=== PATIENT | female | born 1970 | race American Indian/Alaskan Native ===

== ENCOUNTER 2018-02-17 20:51 | Inpatient (IN) | payer OTHER ==
[2018-02-17 21:58] LABS: Bacteria,Urine 1+ /HPF (Negative); Bilirubin,Urine NEG (Negative); Blood,Urine LG (Negative); Color,Urine Yellow (Yellow); Mucus,Urine FEW /HPF; Urobilinogen,Urine < 2.0 mg/dL (<2.0)
[2018-02-17 22:31] LABS: Hematocrit 45.2 % (30.3-42.9); Hemoglobin 14.4 gm/dl (10.1-14.3); Mean Corpuscular HGB Conc 32 % (30-34); Mean Corpuscular Hemoglobin 29 pg (28-32); Mean Corpuscular Volume 91 fl (79-97); Platelet Count 354 K/mm3 (140-440); Red Blood Count 4.99 M/mm3 (3.65-5.03); Red Cell Distribution Width 15.9 % (13.2-15.2)
[2018-02-17 22:45] LABS: Albumin 4.1 g/dL (3.9-5); Calcium 9.3 mg/dL (8.4-10.2)
[2018-02-17 23:16] LABS: Band Neutrophils # (Manual) 0.3 K/mm3; Basophils % (Manual) 0 % (0.0-1.8); Eosinophils % (Manual) 0 % (0.0-4.3); Total Cells Counted 100
[2018-02-17 23:17] LABS: Ovalocytes Few; Platelet Estimate Consistent w Auto; Poikilocytosis Few
[2018-02-17] MEDS ORDERED: D50W (25GM) Syringe IV PRN (23:30)
[2018-02-17] MEDS ORDERED: HumuLIN R IV ONE (23:30)
[2018-02-17] MEDS ORDERED: NACL 0.9% 1000 ML 1,000 ML IV ONE ×2 (23:31)
[2018-02-17] MEDS ORDERED: PEPCID IV ONE (23:38)
[2018-02-17] MEDS ORDERED: ZOFRAN IV ONE (23:38)
[2018-02-17 23:47] LABS: HCG Qualitative,Urine Negative (Negative)
--- NOTE | 2018-02-18 00:20 | Emergency Department Report ---
ED N/V/D HPI - General Chief complaint: Abdominal Pain Stated complaint: ABD PAIN; SOB Time Seen by Provider: 02/17/18 23:28 Source: patient Mode of arrival: Ambulatory Limitations: No Limitations - History of Present Illness Initial comments: 47-year-old female with a past medical history of insulin-dependent diabetes and hypertension presents to the hospital complaining of nausea, vomiting, by mouth intolerance, and generalized abdominal pain since this a.m. Patient has been noncompliant with her insulin 1 week because she ran out of medication. History of DKA last approximately 3 years ago. Patient complains of generalized 10/10 abdominal pain that is constant and unable to characterize the quality. Pain is worse with palpation with alleviating factors. She denies hematochezia, hematemesis, diarrhea, fever, or dysuria. Shortness of breath also reported. - Related Data Home Medications Medication Instructions Recorded Confirmed Last Taken amLODIPine [Norvasc] 5 mg PO DAILY 10/24/14 10/24/14 Unknown l-Norgest/E.estradiol-E.estrad 1 each PO DAILY 10/24/14 10/24/14 Unknown [Quartette Tablet] Previous Rx's Medication Instructions Recorded Last Taken Type Insulin NPH, Human [NovoLIN N] 35 unit SUB-Q BIDDIAB #1 units 10/29/14 Unknown Rx Pantoprazole [Protonix TAB] 40 mg PO BID #60 tablet 10/29/14 Unknown Rx oxyCODONE [Roxicodone TAB] 10 mg PO Q6H PRN #30 tablet 10/29/14 Unknown Rx Allergies Allergy/AdvReac Type Severity Reaction Status Date / Time Penicillins Allergy Unknown Verified 10/19/14 21:41 ED Review of Systems ROS: Stated complaint: ABD PAIN; SOB Other details as noted in HPI Comment: All other systems reviewed and negative ED Past Medical Hx - Past Medical History Hx Hypertension: Yes Hx Diabetes: Yes - Surgical History Past Surgical History?: No - Social History Smoking Status: Never Smoker Substance Use Type: None - Medications Home Medications: Home Medications Medication Instructions Recorded Confirmed Last Taken Type amLODIPine [Norvasc] 5 mg PO DAILY 10/24/14 10/24/14 Unknown History l-Norgest/E.estradiol-E.estrad 1 each PO DAILY 10/24/14 10/24/14 Unknown History [Quartette Tablet] Insulin NPH, Human [NovoLIN N] 35 unit SUB-Q BIDDIAB #1 units 10/29/14 Unknown Rx Pantoprazole [Protonix TAB] 40 mg PO BID #60 tablet 10/29/14 Unknown Rx oxyCODONE [Roxicodone TAB] 10 mg PO Q6H PRN #30 tablet 10/29/14 Unknown Rx ED Physical Exam - General Limitations: No Limitations - Other Other exam information: General: Moderate distress due to pain Head exam: Atraumatic, normocephalic Eyes exam: Normal appearance, nonicteric sclera ENT: Dry Mucous membranes Neck exam: Normal inspection, full range of motion, no meningismus nontender Respiratory exam: tachypnea, lungs clear to auscultation, ketotic breath odor Cardiovascular: Tachycardic regular rhythm Abdomen: Soft, nondistended, generalized tenderness without rebound or guarding. Bowel sounds normal Extremity: Full range of motion normal inspection no deformity Back: Normal Inspection, full range of motion, no tenderness Neurologic: Alert, oriented x3, cranial nerves intact, no motor or sensory deficit Skin: Warm, dry, intact ED Course Vital Signs 02/17/18 02/17/18 02/18/18 20:53 20:59 00:00 Temperature 98.1 F 98.1 F Pulse Rate 119 H 119 H 112 H Respiratory 18 20 26 H Rate Blood Pressure 165/100 165/100 154/88 O2 Sat by Pulse 100 100 99 Oximetry 02/18/18 00:41 Temperature 98.1 F Pulse Rate Respiratory Rate Blood Pressure O2 Sat by Pulse Oximetry ED Medical Decision Making - Lab Data Result diagrams: 02/17/18 22:05 02/17/18 22:05 Lab Results 02/17/18 02/17/18 02/17/18 Range/Units 21:10 21:24 22:05 WBC 10.7 (4.5-11.0) K/mm3 RBC 4.99 (3.65-5.03) M/mm3 Hgb 14.4 H (10.1-14.3) gm/dl Hct 45.2 H (30.3-42.9) % MCV 91 (79-97) fl MCH 29 (28-32) pg MCHC 32 (30-34) % RDW 15.9 H (13.2-15.2) % Plt Count 354 (140-440) K/mm3 Add Manual Diff Complete Total Counted 100 Seg Neutrophils % Internet Designer Seg Neuts % (Manual) 82.0 H (40.0-70.0) % Band Neutrophils % 3.0 % Lymphocytes % (Manual) 12.0 L (13.4-35.0) % Reactive Lymphs % (Man) 0 % Monocytes % (Manual) 3.0 (0.0-7.3) % Eosinophils % (Manual) 0 (0.0-4.3) % Basophils % (Manual) 0 (0.0-1.8) % Metamyelocytes % 0 % Myelocytes % 0 % Promyelocytes % 0 % Blast Cells % 0 % Nucleated RBC % Not Reportable Seg Neutrophils # Man 8.8 H (1.8-7.7) K/mm3 Band Neutrophils # 0.3 K/mm3 Lymphocytes # (Manual) 1.3 (1.2-5.4) K/mm3 Abs React Lymphs (Man) 0.0 K/mm3 Monocytes # (Manual) 0.3 (0.0-0.8) K/mm3 Eosinophils # (Manual) 0.0 (0.0-0.4) K/mm3 Basophils # (Manual) 0.0 (0.0-0.1) K/mm3 Metamyelocytes # 0.0 K/mm3 Myelocytes # 0.0 K/mm3 Promyelocytes # 0.0 K/mm3 Blast Cells # 0.0 K/mm3 WBC Morphology Not Reportable Hypersegmented Neuts Not Reportable Hyposegmented Neuts Not Reportable Hypogranular Neuts Not Reportable Smudge Cells Not Reportable Toxic Granulation Not Reportable Toxic Vacuolation Not Reportable Dohle Bodies Not Reportable Pelger-Huet Anomaly Not Reportable Maude Rods Not Reportable Platelet Estimate Consistent w auto Clumped Platelets Not Reportable Plt Clumps, EDTA Not Reportable Large Platelets Not Reportable Giant Platelets Not Reportable Platelet Satelliting Not Reportable Plt Morphology Comment Not Reportable RBC Morphology Not Reportable Dimorphic RBCs Not Reportable Polychromasia Not Reportable Hypochromasia Not Reportable Poikilocytosis Few Anisocytosis Not Reportable Microcytosis Not Reportable Macrocytosis Not Reportable Spherocytes Not Reportable Pappenheimer Bodies Not Reportable Sickle Cells Not Reportable Target Cells Not Reportable Tear Drop Cells Not Reportable Ovalocytes Few Helmet Cells Not Reportable [place] Bodies Not Reportable Bradford Rings Not Reportable [place] Cells Not Reportable Bite Cells Not Reportable Crenated Cell Not Reportable Elliptocytes Not Reportable Acanthocytes (Spur) Not Reportable Rouleaux Not Reportable Hemoglobin C Crystals Not Reportable Schistocytes Not Reportable Malaria parasites Not Reportable Herbert Bodies Not Reportable Hem Pathologist Commnt No VBG pH (7.320-7.420) Sodium (137-145) mmol/L Potassium (3.6-5.0) mmol/L Chloride (98-107) mmol/L Carbon Dioxide (22-30) mmol/L Anion Gap mmol/L BUN (7-17) mg/dL Creatinine (0.7-1.2) mg/dL Estimated GFR ml/min BUN/Creatinine Ratio % Glucose (65-100) mg/dL POC Glucose > 500 H (70-105) Calcium (8.4-10.2) mg/dL Phosphorus (2.5-4.5) mg/dL Magnesium (1.7-2.3) mg/dL Total Bilirubin (0.1-1.2) mg/dL AST (5-40) units/L ALT (7-56) units/L Alkaline Phosphatase (35-129) units/L Total Protein (6.3-8.2) g/dL Albumin (3.9-5) g/dL Albumin/Globulin Ratio % Lipase (13-60) units/L Urine Color Yellow (Yellow) Urine Turbidity Clear (Clear) Urine pH 5.0 (5.0-7.0) Ur Specific [place] 1.026 (1.003-1.030) Urine Protein 30 mg/dl (Negative) mg/dL Urine Glucose (UA) >=500 (Negative) mg/dL Urine Ketones 80 (Negative) mg/dL Urine Blood Lg (Negative) Urine Nitrite Neg (Negative) Urine Bilirubin Neg (Negative) Urine Urobilinogen < 2.0 (<2.0) mg/dL Ur Leukocyte Esterase Neg (Negative) Urine WBC (Auto) 1.0 (0.0-6.0) /HPF Urine RBC (Auto) 3.0 (0.0-6.0) /HPF U Epithel Cells (Auto) 9.0 (0-13.0) /HPF Urine Bacteria (Auto) 1+ (Negative) /HPF Urine Mucus Few /HPF Urine HCG, Qual (Negative) 02/17/18 02/17/18 02/17/18 Range/Units 22:05 22:05 23:39 WBC (4.5-11.0) K/mm3 RBC (3.65-5.03) M/mm3 Hgb (10.1-14.3) gm/dl Hct (30.3-42.9) % MCV (79-97) fl MCH (28-32) pg MCHC (30-34) % RDW (13.2-15.2) % Plt Count (140-440) K/mm3 Add Manual Diff Total Counted Seg Neutrophils % Seg Neuts % (Manual) (40.0-70.0) % Band Neutrophils % % Lymphocytes % (Manual) (13.4-35.0) % Reactive Lymphs % (Man) % Monocytes % (Manual) (0.0-7.3) % Eosinophils % (Manual) (0.0-4.3) % Basophils % (Manual) (0.0-1.8) % Metamyelocytes % % Myelocytes % % Promyelocytes % % Blast Cells % % Nucleated RBC % Seg Neutrophils # Man (1.8-7.7) K/mm3 Band Neutrophils # K/mm3 Lymphocytes # (Manual) (1.2-5.4) K/mm3 Abs React Lymphs (Man) K/mm3 Monocytes # (Manual) (0.0-0.8) K/mm3 Eosinophils # (Manual) (0.0-0.4) K/mm3 Basophils # (Manual) (0.0-0.1) K/mm3 Metamyelocytes # K/mm3 Myelocytes # K/mm3 Promyelocytes # K/mm3 Blast Cells # K/mm3 WBC Morphology Hypersegmented Neuts Hyposegmented Neuts Hypogranular Neuts Smudge Cells Toxic Granulation Toxic Vacuolation Dohle Bodies Pelger-Huet Anomaly Maude Rods Platelet Estimate Clumped Platelets Plt Clumps, EDTA Large Platelets Giant Platelets Platelet Satelliting Plt Morphology Comment RBC Morphology Dimorphic RBCs Polychromasia Hypochromasia Poikilocytosis Anisocytosis Microcytosis Macrocytosis Spherocytes Pappenheimer Bodies Sickle Cells Target Cells Tear Drop Cells Ovalocytes Helmet Cells [place] Bodies Bradford Rings Kingsley Cells Bite Cells Crenated Cell Elliptocytes Acanthocytes (Spur) Rouleaux Hemoglobin C Crystals Schistocytes Malaria parasites Herbert Bodies Hem Pathologist Commnt VBG pH 7.079 L* (7.320-7.420) Sodium 125 L (137-145) mmol/L Potassium 5.6 H (3.6-5.0) mmol/L Chloride 82.6 L (98-107) mmol/L Carbon Dioxide 6 L* (22-30) mmol/L Anion Gap 42 mmol/L BUN 18 H (7-17) mg/dL Creatinine 1.5 H (0.7-1.2) mg/dL Estimated GFR 45 ml/min BUN/Creatinine Ratio 12 % Glucose 729 H* (65-100) mg/dL POC Glucose (70-105) Calcium 9.3 (8.4-10.2) mg/dL Phosphorus (2.5-4.5) mg/dL Magnesium (1.7-2.3) mg/dL Total Bilirubin 0.30 (0.1-1.2) mg/dL AST 12 (5-40) units/L ALT 8 (7-56) units/L Alkaline Phosphatase 126 (35-129) units/L Total Protein 9.1 H (6.3-8.2) g/dL Albumin 4.1 (3.9-5) g/dL Albumin/Globulin Ratio 0.8 % Lipase 48 (13-60) units/L Urine Color (Yellow) Urine Turbidity (Clear) Urine pH (5.0-7.0) Ur Specific [place] (1.003-1.030) Urine Protein (Negative) mg/dL Urine Glucose (UA) (Negative) mg/dL Urine Ketones (Negative) mg/dL Urine Blood (Negative) Urine Nitrite (Negative) Urine Bilirubin (Negative) Urine Urobilinogen (<2.0) mg/dL Ur Leukocyte Esterase (Negative) Urine WBC (Auto) (0.0-6.0) /HPF Urine RBC (Auto) (0.0-6.0) /HPF U Epithel Cells (Auto) (0-13.0) /HPF Urine Bacteria (Auto) (Negative) /HPF Urine Mucus /HPF Urine HCG, Qual Negative (Negative) 02/17/18 Range/Units Unknown WBC (4.5-11.0) K/mm3 RBC (3.65-5.03) M/mm3 Hgb (10.1-14.3) gm/dl Hct (30.3-42.9) % MCV (79-97) fl MCH (28-32) pg MCHC (30-34) % RDW (13.2-15.2) % Plt Count (140-440) K/mm3 Add Manual Diff Total Counted Seg Neutrophils % Seg Neuts % (Manual) (40.0-70.0) % Band Neutrophils % % Lymphocytes % (Manual) (13.4-35.0) % Reactive Lymphs % (Man) % Monocytes % (Manual) (0.0-7.3) % Eosinophils % (Manual) (0.0-4.3) % Basophils % (Manual) (0.0-1.8) % Metamyelocytes % % Myelocytes % % Promyelocytes % % Blast Cells % % Nucleated RBC % Seg Neutrophils # Man (1.8-7.7) K/mm3 Band Neutrophils # K/mm3 Lymphocytes # (Manual) (1.2-5.4) K/mm3 Abs React Lymphs (Man) K/mm3 Monocytes # (Manual) (0.0-0.8) K/mm3 Eosinophils # (Manual) (0.0-0.4) K/mm3 Basophils # (Manual) (0.0-0.1) K/mm3 Metamyelocytes # K/mm3 Myelocytes # K/mm3 Promyelocytes # K/mm3 Blast Cells # K/mm3 WBC Morphology Hypersegmented Neuts Hyposegmented Neuts Hypogranular Neuts Smudge Cells Toxic Granulation Toxic Vacuolation Dohle Bodies Pelger-Huet Anomaly Maude Rods Platelet Estimate Clumped Platelets Plt Clumps, EDTA Large Platelets Giant Platelets Platelet Satelliting Plt Morphology Comment RBC Morphology Dimorphic RBCs Polychromasia Hypochromasia Poikilocytosis Anisocytosis Microcytosis Macrocytosis Spherocytes Pappenheimer Bodies Sickle Cells Target Cells Tear Drop Cells Ovalocytes Helmet Cells [place] Bodies Bradford Rings [place] Cells Bite Cells Crenated Cell Elliptocytes Acanthocytes (Spur) Rouleaux Hemoglobin C Crystals Schistocytes Malaria parasites Herbert Bodies Hem Pathologist Commnt VBG pH (7.320-7.420) Sodium (137-145) mmol/L Potassium (3.6-5.0) mmol/L Chloride (98-107) mmol/L Carbon Dioxide (22-30) mmol/L Anion Gap mmol/L BUN (7-17) mg/dL Creatinine (0.7-1.2) mg/dL Estimated GFR ml/min BUN/Creatinine Ratio % Glucose (65-100) mg/dL POC Glucose (70-105) Calcium (8.4-10.2) mg/dL Phosphorus 4.60 H (2.5-4.5) mg/dL Magnesium 1.90 (1.7-2.3) mg/dL Total Bilirubin (0.1-1.2) mg/dL AST (5-40) units/L ALT (7-56) units/L Alkaline Phosphatase (35-129) units/L Total Protein (6.3-8.2) g/dL Albumin (3.9-5) g/dL Albumin/Globulin Ratio % Lipase (13-60) units/L Urine Color (Yellow) Urine Turbidity (Clear) Urine pH (5.0-7.0) Ur Specific [place] (1.003-1.030) Urine Protein (Negative) mg/dL Urine Glucose (UA) (Negative) mg/dL Urine Ketones (Negative) mg/dL Urine Blood (Negative) Urine Nitrite (Negative) Urine Bilirubin (Negative) Urine Urobilinogen (<2.0) mg/dL Ur Leukocyte Esterase (Negative) Urine WBC (Auto) (0.0-6.0) /HPF Urine RBC (Auto) (0.0-6.0) /HPF U Epithel Cells (Auto) (0-13.0) /HPF Urine Bacteria (Auto) (Negative) /HPF Urine Mucus /HPF Urine HCG, Qual (Negative) - EKG Data -: EKG Interpreted by Ca EKG shows normal: sinus rhythm, axis (qrs 43), QRS complexes (qrsd 72), ST-T waves (no stemi/t inv) Rate: tachycardia - EKG Data When compared to previous EKG there are: previous EKG unavailable - Medical Decision Making DKA Likely secondary to insulin noncompliance likely cause of abd pain, n,v, and sob (+ metabolic acidosis) Normal saline, insulin drip with bolus, Zofran, and DKA protocol initiated LFTs and lipase unremarkable UA negative for infection Associated hyperkalemia should improve with insulin drip. No peak T waves visualized on EKG Renal insufficiency Likely due to dehydration associated with DKA IVF/NS initiated HTN chronic Hospitalists informed of admission pt will require ICU - Differential Diagnosis DKA, pancreatitis, hepatitis, gastroenteritis, , UTI, gastroparesi Critical Care Time: No Critical care attestation.: If time is entered above; I have spent that time in minutes in the direct care of this critically ill patient, excluding procedure time. ED Disposition Clinical Impression: Diabetic ketoacidosis, Noncompliance with medication regimen, Hyperkalemia, Acute renal insufficiency Disposition: OP ADMIT IP TO THIS HOSP Is pt being admited?: Yes Condition: Stable Referrals: PRIMARY CARE, [Primary Care Provider] - 3-5 Days Time of Disposition: 00:20 (Dr Steiner/hosp)
[2018-02-18] MEDS: HumuLIN R 100 UNITS in NACL 0.9% 99 ML IV SCH ×2 (00:26→11:31)
[2018-02-18] MEDS ORDERED: REGLAN IV PRN (01:53)
[2018-02-18] MEDS ORDERED: ZOFRAN IV PRN (01:53)
[2018-02-18] MEDS ORDERED: SODIUM CHLORIDE FLUSH SYRINGE 10 ML IV PRN (01:53)
--- NOTE | 2018-02-18 01:53 | History and Physical Report ---
History of Present Illness Date of examination: 02/18/18 History of present illness: 47-year-old man history of hypertension, diabetes becomes to emergency room for evaluation of generalized weakness, nausea and vomiting and generalized abdominal cramping. Towards the end of November she has been using her insulin sparingly so that it could last longer, over the last 1 week she had no insulin. Review of systems Constitutional: no weight loss, chills Ears, eyes, nose, mouth and throat: no nasal congestion, no nasal discharge, no sinus pressure, no vision change, no red eye. Neck: No neck pain or rigidity. Cardiovascular: no chest pain, palpitations Respiratory: No cough, shortness of breath Gastrointestinal: no abdominal pain, hematochezia Genitourinary : no dysuria, frequency , no hematuria Musculoskeletal: no joint swelling or muscle ache Integumentary: no rash, no pruritis Neurological: no parathesias, no numbness, no focal weakness Endocrine: no cold or heat intolerance, no polyuria or polydipsia Hematologic/Lymphatic: no easy bruising, no easy bleeding, no gland swelling Allergic/Immunologic: no urticaria, no angioedema. PAST MEDICAL HISTORY: hypertension, diabetes PAST SURGICAL HISTORY: None SOCIAL HISTORY: Denies alcohol, tobacco, drugs FAMILY HISTORY: Diabetes Medications and Allergies Allergies Allergy/AdvReac Type Severity Reaction Status Date / Time Penicillins Allergy Unknown Verified 10/19/14 21:41 Home Medications Medication Instructions Recorded Confirmed Last Taken Type amLODIPine [Norvasc] 5 mg PO DAILY 10/24/14 02/18/18 Unknown History Insulin NPH, Human [NovoLIN N] 35 unit SUB-Q BIDDIAB #1 units 10/29/14 02/18/18 Unknown Rx Insulin Regular, Human [Humulin R] 35 units SUB-Q DAILY 02/18/18 02/18/18 Unknown History Active Meds: Active Medications Dextrose (D50w (25gm) Syringe) 0 ml IV PRN PRN PRN Reason: Hypoglycemia Insulin Human Regular 100 (units/ Sodium Chloride) 100 mls @ 1 mls/hr IV TITR TREVOR; Protocol Last Titration: 02/18/18 01:38 Dose: 8 units/hr, 8 mls/hr Exam - Physical Exam Narrative exam: Gen. appearance: Patient lying in bed, no apparent distress HEENT: Normocephalic, atraumatic, pupils equally round and reactive to light, extraocular movement intact, and no sclericterus,. No JVD or thyromegaly or nodule,neck supple, no carotid bruit ,mucous membranes dry, no exudate or erythema Heart: S1, S2, regular rate and rhythm Lungs: Clear to auscultation bilaterally, breathing comfortable Abdomen: Positive bowel sounds, nontender, nondistended, no organomegaly Extremity: No edema, cyanosis, clubbing Skin: No rash, nodules, warm, dry Neuro: Oriented 3, cranial nerves II-12 intact, speech is fluent, motor and sensory intact - Constitutional Vitals: Temp Pulse Resp BP Pulse Ox 98.1 F 112 H 26 H 154/88 99 02/18/18 00:41 02/18/18 00:00 02/18/18 00:00 02/18/18 00:00 02/18/18 00:00 Results - Labs CBC & Chem 7: 02/17/18 22:05 02/18/18 02:17 Labs: Abnormal lab results 02/17/18 02/17/18 02/17/18 Range/Units 21:10 22:05 22:05 Hgb 14.4 H (10.1-14.3) gm/dl Hct 45.2 H (30.3-42.9) % RDW 15.9 H (13.2-15.2) % Seg Neuts % (Manual) 82.0 H (40.0-70.0) % Lymphocytes % (Manual) 12.0 L (13.4-35.0) % Seg Neutrophils # Man 8.8 H (1.8-7.7) K/mm3 VBG pH (7.320-7.420) Sodium 125 L (137-145) mmol/L Potassium 5.6 H (3.6-5.0) mmol/L Chloride 82.6 L (98-107) mmol/L Carbon Dioxide 6 L* (22-30) mmol/L BUN 18 H (7-17) mg/dL Creatinine 1.5 H (0.7-1.2) mg/dL Glucose 729 H* (65-100) mg/dL POC Glucose > 500 H (70-105) Phosphorus (2.5-4.5) mg/dL Total Protein 9.1 H (6.3-8.2) g/dL 02/17/18 02/17/18 Range/Units 22:05 Unknown Hgb (10.1-14.3) gm/dl Hct (30.3-42.9) % RDW (13.2-15.2) % Seg Neuts % (Manual) (40.0-70.0) % Lymphocytes % (Manual) (13.4-35.0) % Seg Neutrophils # Man (1.8-7.7) K/mm3 VBG pH 7.079 L* (7.320-7.420) Sodium (137-145) mmol/L Potassium (3.6-5.0) mmol/L Chloride (98-107) mmol/L Carbon Dioxide (22-30) mmol/L BUN (7-17) mg/dL Creatinine (0.7-1.2) mg/dL Glucose (65-100) mg/dL POC Glucose (70-105) Phosphorus 4.60 H (2.5-4.5) mg/dL Total Protein (6.3-8.2) g/dL Assessment and Plan Assessment DKA Metabolic acidosis Dehydration Hypertension Plan Admit to medicine DKA protocol with insulin drip, IV fluid Monitor serial chemistry, fingersticks Consult critical care DVT prophylaxis
[2018-02-18] MEDS ORDERED: NACL 0.9% 1000 ML 1,000 ML IV SCH (02:00)
[2018-02-18] MEDS ORDERED: D5/0.45NS 1,000 ML IV SCH (02:00)
[2018-02-18 02:42] LABS: Calcium 8.8 mg/dL (8.4-10.2)
[2018-02-18] MEDS ORDERED: NACL 0.9% 1000 ML 1,000 ML ONE (02:55)
[2018-02-18 07:36] LABS: BUN/Creatinine Ratio 14; Blood Urea Nitrogen 15 mg/dL (7-17); Calcium 8.3 mg/dL (8.4-10.2); Hemolysis Index 13
[2018-02-18] MEDS: TYLENOL PO PRN ×2 (09:04→16:35)
[2018-02-18] MEDS: NORVASC PO SCH (09:04)
[2018-02-18] MEDS: SODIUM CHLORIDE FLUSH SYRINGE 10 ML IV SCH ×2 (09:05→21:40)
[2018-02-18] MEDS: LOVENOX SUB-Q SCH (09:05)
--- NOTE | 2018-02-18 10:37 | Consultation ---
History of Present Illness Consult date: 02/18/18 Requesting physician: BEV ANAND Reason for consult: other (Diabetic Ketoacidosis; Metabolic Acidosis; Hyprekalemia) History of present illness: PULMONARY/CCM CONSULT NOTE (full dictation # [id number]) Please see dictated notes for full details Medications and Allergies Allergies Allergy/AdvReac Type Severity Reaction Status Date / Time Penicillins Allergy Unknown Verified 10/19/14 21:41 Home Medications Medication Instructions Recorded Confirmed Last Taken Type amLODIPine [Norvasc] 5 mg PO DAILY 10/24/14 02/18/18 Unknown History Insulin NPH, Human [NovoLIN N] 35 unit SUB-Q BIDDIAB #1 units 10/29/14 02/18/18 Unknown Rx Insulin Regular, Human [Humulin R] 35 units SUB-Q DAILY 02/18/18 02/18/18 Unknown History Active Meds: Active Medications Acetaminophen (Tylenol) 650 mg PO Q4H PRN PRN Reason: Pain MILD(1-3)/Fever >100.5/WILDE Last Admin: 02/18/18 09:04 Dose: 650 mg Amlodipine Besylate (Norvasc) 5 mg PO DAILY TREVOR Last Admin: 02/18/18 09:04 Dose: 5 mg Dextrose (D50w (25gm) Syringe) 0 ml IV PRN PRN PRN Reason: Hypoglycemia Enoxaparin Sodium (Lovenox) 40 mg SUB-Q QDAY TREVOR Last Admin: 02/18/18 09:05 Dose: 40 mg Insulin Human Regular 100 (units/ Sodium Chloride) 100 mls @ 1 mls/hr IV TITR TREVOR; Protocol Last Titration: 02/18/18 10:08 Dose: 3 units/hr, 3 mls/hr Dextrose/Sodium Chloride (D5/0.45ns) 1,000 mls @ 150 mls/hr IV DIRECT TREVOR Last Admin: 02/18/18 10:19 Dose: 150 mls/hr Sodium Chloride (Nacl 0.9% 1000 Ml) 1,000 mls @ 150 mls/hr IV DIRECT TREVOR Last Admin: 02/18/18 02:30 Dose: 150 mls/hr Metoclopramide HCl (Reglan) 10 mg IV Q6H PRN PRN Reason: Nausea And Vomiting Ondansetron HCl (Zofran) 4 mg IV Q4H PRN PRN Reason: Nausea And Vomiting Last Admin: 02/18/18 09:04 Dose: 4 mg Sodium Chloride (Sodium Chloride Flush Syringe 10 Ml) 10 ml IV BID TREVOR Last Admin: 02/18/18 09:05 Dose: 10 ml Sodium Chloride (Sodium Chloride Flush Syringe 10 Ml) 10 ml IV PRN PRN PRN Reason: LINE FLUSH Physical Examination Vital signs: Vital Signs Temp Pulse Resp BP Pulse Ox 98.1 F 119 H 18 165/100 100 02/17/18 20:53 02/17/18 20:53 02/17/18 20:53 02/17/18 20:53 02/17/18 20:53 Results - Laboratory Findings CBC and BMP: 02/17/18 22:05 02/18/18 10:44 Abnormal lab findings: Abnormal Labs 02/17/18 02/17/18 02/17/18 21:10 22:05 22:05 Hgb 14.4 H Hct 45.2 H RDW 15.9 H Seg Neuts % (Manual) 82.0 H Lymphocytes % (Manual) 12.0 L Seg Neutrophils # Man 8.8 H VBG pH Sodium 125 L Potassium 5.6 H Chloride 82.6 L Carbon Dioxide 6 L* BUN 18 H Creatinine 1.5 H Glucose 729 H* POC Glucose > 500 H Hemoglobin A1c Calcium Phosphorus Total Protein 9.1 H 02/17/18 02/17/18 02/17/18 22:05 Unknown 23:59 Hgb Hct RDW Seg Neuts % (Manual) Lymphocytes % (Manual) Seg Neutrophils # Man VBG pH 7.079 L* Sodium Potassium Chloride Carbon Dioxide BUN Creatinine Glucose POC Glucose > 500 H Hemoglobin A1c Calcium Phosphorus 4.60 H Total Protein 02/18/18 02/18/18 02/18/18 00:34 01:30 01:40 Hgb Hct RDW Seg Neuts % (Manual) Lymphocytes % (Manual) Seg Neutrophils # Man VBG pH Sodium Potassium Chloride Carbon Dioxide BUN Creatinine Glucose POC Glucose > 500 H 443 H Hemoglobin A1c 13.6 H Calcium Phosphorus Total Protein 02/18/18 02/18/18 02/18/18 02:17 02:42 03:41 Hgb Hct RDW Seg Neuts % (Manual) Lymphocytes % (Manual) Seg Neutrophils # Man VBG pH Sodium 130 L Potassium 5.5 H Chloride 92.3 L Carbon Dioxide 6 L* BUN 18 H Creatinine 1.3 H Glucose 571 H* POC Glucose 489 H 426 H Hemoglobin A1c Calcium Phosphorus Total Protein 02/18/18 02/18/18 02/18/18 04:43 05:44 06:42 Hgb Hct RDW Seg Neuts % (Manual) Lymphocytes % (Manual) Seg Neutrophils # Man VBG pH Sodium Potassium Chloride Carbon Dioxide BUN Creatinine Glucose POC Glucose 342 H 315 H 276 H Hemoglobin A1c Calcium Phosphorus Total Protein 02/18/18 02/18/18 02/18/18 07:12 08:15 09:06 Hgb Hct RDW Seg Neuts % (Manual) Lymphocytes % (Manual) Seg Neutrophils # Man VBG pH Sodium 132 L Potassium Chloride Carbon Dioxide 12 L BUN Creatinine Glucose 269 H POC Glucose 228 H 204 H Hemoglobin A1c Calcium 8.3 L Phosphorus Total Protein 02/18/18 02/18/18 09:33 10:10 Hgb Hct RDW Seg Neuts % (Manual) Lymphocytes % (Manual) Seg Neutrophils # Man VBG pH Sodium Potassium Chloride Carbon Dioxide BUN Creatinine Glucose POC Glucose 195 H 171 H Hemoglobin A1c Calcium Phosphorus Total Protein
[2018-02-18 11:16] LABS: BUN/Creatinine Ratio 16; Blood Urea Nitrogen 16 mg/dL (7-17); Calcium 8.1 mg/dL (8.4-10.2); Hemolysis Index 5
[2018-02-18 13:18] LABS: BUN/Creatinine Ratio 16; Blood Urea Nitrogen 16 mg/dL (7-17); Calcium 8.3 mg/dL (8.4-10.2); Hemolysis Index 10
[2018-02-18] MEDS ORDERED: D50W (25GM) Syringe IV PRN (13:42)
[2018-02-18] MEDS ORDERED: LANTUS SUB-Q ONE (13:42)
[2018-02-18] MEDS ORDERED: SODIUM BICARBONATE IV ONE (14:40)
--- NOTE | 2018-02-18 14:44 | Event Note ---
Date: 02/18/18 Patient was seen and evaluated this morning, patient is admitted this morning. Management of DKA. Patient has been managed according to DKA protocol. Patient has high anion gap metabolic acidosis and patient was given bicarbonate. Patient was alert and oriented. Continue management per H&P. The high probability of a clinically significant, sudden or life threatening deterioration of the [endocrine] system(s) required my full and direct attention , intervention and personal management. The aggregate critical care time was [32 ] minutes. This time is in addition to time spent performing reported procedures but includes the following: [x] Data Review and interpretation [x] Patient assessment and monitoring of vital signs [x] Documentation [x] Medication orders and management
[2018-02-18] MEDS ORDERED: SODIUM BICARBONATE 150 MEQ in D5W 1,000 ML IV SCH (15:00)
[2018-02-18] MEDS: HumuLIN R SUB-Q SCH ×2 (16:34→21:48)
[2018-02-18 19:16] LABS: BUN/Creatinine Ratio 15; Blood Urea Nitrogen 16 mg/dL (7-17); Calcium 8.6 mg/dL (8.4-10.2); Hemolysis Index 16
[2018-02-19 00:23] LABS: BUN/Creatinine Ratio 15; Blood Urea Nitrogen 16 mg/dL (7-17); Calcium 8.5 mg/dL (8.4-10.2); Hemolysis Index 5
[2018-02-19] MEDS: TYLENOL PO PRN (01:40)
--- NOTE | 2018-02-19 04:25 | Consultation ---
PULMONARY AND CRITICAL CARE CONSULT NOTE CONSULTING PHYSICIAN: Dr. Steiner. REASON FOR CONSULTATION: Diabetic ketoacidosis, need for ICU admission for IV insulin administration. CHIEF COMPLAINT AND HISTORY OF PRESENT ILLNESS: The patient is a 47-year-old -Macanese female with past medical history significant for diabetes, insulin-dependent, and high blood pressure, came into the Emergency Room complaining of nausea, vomiting, generalized abdominal pain had been going on for about 24 hours. She stated that she had been rationing her insulin at home and then finally ran out about a week ago. She has had a similar episode about 3 years ago. She denied any hematochezia. She denied hematemesis. She denied diarrhea. She denied fevers or chills. She denied any dysuria. She did have some abdominal pain. At the time I saw her, she remained on an insulin drip, IV insulin at 3 units per hour and is feeling a little bit better. She denies any history of tobacco use or abuse whatsoever. This really is as much of the history of presentation as I have. PAST MEDICAL HISTORY: Hypertension, diabetes. She is obese. PAST SURGICAL HISTORY: Denies. MEDICATIONS: She was on at the time I stopped by to see her, according to the medication administration record included the following: Amlodipine 5 mg p.o. daily. She remains n.p.o. now, Lovenox 40 mg subcutaneous daily. The insulin drip was going at 3 units per hour, Reglan 10 mg IV q. 6 hours p.r.n. nausea and vomiting, Zofran 4 mg IV q. 4 hours p.r.n. nausea and vomiting. ALLERGIES: PENICILLINS, nature of this allergy is unknown. DIET: Obese lady, denies acute weight loss or gain in the preceding few weeks to months. FAMILY AND SOCIAL HISTORY: Lives in the community. Denies alcohol, tobacco, or illicit drug use or abuse. Family history, otherwise noncontributory. REVIEW OF SYSTEMS: No loss of consciousness. No new onset seizures. No new onset focal weakness. No gross hematochezia or melena. No gross hematuria or dysuria. No hematemesis. No hemoptysis, no palpitations. She denies polydipsia or polyuria. Denies heat or cold intolerance. Denied any new rash on her body. Denied any new lumps or bumps. She denies any fasciculations or spasticity. No seizures. Complete 13-system review of systems obtained. Pertinent positives and/or negatives are as in body of history above, otherwise they are noncontributory. PHYSICAL EXAMINATION: VITAL SIGNS: At presentation, she was afebrile, temperature 98.1 degrees Fahrenheit, pulse 119, respiratory rate 18, blood pressure 165/100, oxygen sats 100%, inspired oxygen concentration at that time was not recorded. At the time of my evaluation, she was on supplemental oxygen 1 liter nasal cannula. GENERAL: Well-built, middle-aged -Macanese female, normocephalic, atraumatic. A little bit lethargic, but otherwise in mild respiratory distress. HEAD, EYES, EARS, NOSE AND THROAT: She is anicteric. No conjunctival erythema. Oropharynx is dry. Oropharynx is a Mallampati #3. No gross jugular venous distention, no thyromegaly. Grossly no palpable lymph nodes in the supraclavicular or submandibular lymph node chains. LUNGS: Auscultation of both lung suarez unremarkable. Lungs are clear bilaterally. HEART: Heart sounds 1 and 2 are heard, regular rate and rhythm at time of my evaluation. No rubs, no murmurs. ABDOMEN: Soft, full, bowel sounds are positive, mildly tender diffusely. No palpable hepatosplenomegaly. EXTREMITIES: Without overt digital clubbing, no cyanosis, no pedal edema. Dorsalis pedis pulses are palpable bilaterally and 2+. NEUROLOGIC: Pupils are equal and round, about 4 mm, reactive to light. Extraocular muscle movements are intact. She moves all 4 extremities spontaneously. SKIN: Normal turgor. No cellulitis, no rash. LABORATORY DATA: From my review are as follows: White cell count 10,700, hemoglobin 14.4, hematocrit 45.2, platelet count 354. Venous blood gas at presentation showed a pH of 7.08. Serum sodium was 125, potassium 5.6, chloride 83, bicarbonate was 6, BUN was 18, creatinine 1.5, glucose 729. Liver function tests essentially within normal limits. Urinalysis, large blood, negative for nitrites and leukocyte esterase and she was spilling glucose. No microbiology studies. No radiographic studies. ASSESSMENT: 1. Uncontrolled diabetes with diabetic ketoacidosis. 2. Metabolic acidosis. 3. Acute hypoxemic respiratory failure. 4. Hyponatremia. 5. Hyperkalemia. 6. Acute kidney injury. 7. Obesity. 8. Uncontrolled hypertension. 9. Medication noncompliance. PLAN: Continue IV insulin. The anion gap is about to close. Once that has happened, we will transition to long-acting insulin therapy and begin oral nutrition. I will add GI prophylaxis at this point. She is on DVT prophylaxis. Oxygen will be weaned to keep sats greater than or equal to 90%. Aspiration precautions will be maintained. We will continue antiemetics. I have counseled her about better glycemic control. Her hemoglobin A1c is 13.6 and I have explained to her that it is absolutely unacceptable if she is going to avoid significant complications. We will continue volume resuscitation. Flu and pneumonia vaccination will be addressed per protocol. Electrolytes will be monitored and corrected as necessary. Inputs and outputs will be monitored. Thank you very much for the consult. We will follow along and make further recommendations as picture progresses/becomes clearer. JOB# [id number] MARISELA/ARPITA LOMAX
[2018-02-19 06:27] LABS: BUN/Creatinine Ratio 16; Blood Urea Nitrogen 14 mg/dL (7-17); Calcium 8.4 mg/dL (8.4-10.2); Hemolysis Index 10
--- NOTE | 2018-02-19 08:15 | Progress Note ---
Subjective Date of service: 02/19/18 Principal diagnosis: Diabetic ketoacidosis Objective Vital Signs - 12hr 02/18/18 02/18/18 02/18/18 20:33 20:41 20:51 Temperature Pulse Rate 92 H 91 H Pulse Rate [ From Monitor] Respiratory 19 16 Rate Blood Pressure 130/76 130/76 130/76 O2 Sat by Pulse 99 100 99 Oximetry 02/18/18 02/18/18 02/18/18 21:00 21:11 21:20 Temperature Pulse Rate 91 H 92 H 94 H Pulse Rate [ From Monitor] Respiratory 16 29 H 18 Rate Blood Pressure 118/69 118/69 130/76 O2 Sat by Pulse 99 99 99 Oximetry 02/18/18 02/18/18 02/18/18 21:30 21:40 21:50 Temperature Pulse Rate 97 H 94 H 92 H Pulse Rate [ From Monitor] Respiratory 35 H 22 22 Rate Blood Pressure 130/76 130/76 118/69 O2 Sat by Pulse 97 98 99 Oximetry 02/18/18 02/18/18 02/18/18 22:00 22:10 22:20 Temperature Pulse Rate 101 H 94 H 94 H Pulse Rate [ From Monitor] Respiratory 18 19 19 Rate Blood Pressure 125/88 125/88 125/88 O2 Sat by Pulse 97 99 98 Oximetry 02/18/18 02/18/18 02/18/18 22:30 22:40 22:50 Temperature Pulse Rate 88 93 H 94 H Pulse Rate [ From Monitor] Respiratory 20 23 24 Rate Blood Pressure 125/88 125/88 125/88 O2 Sat by Pulse 97 98 97 Oximetry 02/18/18 02/18/18 02/18/18 22:57 23:00 23:02 Temperature Pulse Rate 96 H 95 H 95 H Pulse Rate [ From Monitor] Respiratory 22 22 22 Rate Blood Pressure 125/88 119/77 119/77 O2 Sat by Pulse 97 97 97 Oximetry 02/18/18 02/18/18 02/18/18 23:10 23:30 23:53 Temperature 98.2 F Pulse Rate 95 H 98 H Pulse Rate [ From Monitor] Respiratory 21 12 Rate Blood Pressure 119/77 119/77 O2 Sat by Pulse 95 100 Oximetry 02/19/18 02/19/18 02/19/18 00:00 00:30 01:00 Temperature Pulse Rate 97 H 95 H 99 H Pulse Rate [ 97 H From Monitor] Respiratory 19 19 18 Rate Blood Pressure 120/78 120/78 131/85 O2 Sat by Pulse 99 98 97 Oximetry 02/19/18 02/19/18 02/19/18 01:31 02:00 02:31 Temperature Pulse Rate 107 H 108 H 102 H Pulse Rate [ From Monitor] Respiratory 22 18 21 Rate Blood Pressure 131/85 127/86 127/86 O2 Sat by Pulse 99 99 97 Oximetry 02/19/18 02/19/18 02/19/18 03:00 03:23 03:31 Temperature 99.3 F Pulse Rate 95 H 92 H Pulse Rate [ From Monitor] Respiratory 19 20 Rate Blood Pressure 107/55 107/55 O2 Sat by Pulse 96 97 Oximetry 02/19/18 02/19/18 02/19/18 04:00 04:31 05:03 Temperature Pulse Rate 87 95 H 95 H Pulse Rate [ 95 H From Monitor] Respiratory 19 17 23 Rate Blood Pressure 133/79 133/79 133/79 O2 Sat by Pulse 95 100 98 Oximetry 02/19/18 02/19/18 02/19/18 05:31 06:00 06:31 Temperature Pulse Rate 90 91 H 89 Pulse Rate [ From Monitor] Respiratory 18 15 16 Rate Blood Pressure 131/90 127/89 127/89 O2 Sat by Pulse 99 100 98 Oximetry 02/19/18 02/19/18 02/19/18 07:00 07:30 08:00 Temperature Pulse Rate 87 89 Pulse Rate [ 91 H From Monitor] Respiratory 17 16 18 Rate Blood Pressure 110/61 110/61 O2 Sat by Pulse 98 97 96 Oximetry CBC and BMP: 02/17/18 22:05 02/19/18 05:26 Abnormal lab findings: Abnormal Labs 02/17/18 02/17/18 02/17/18 21:10 22:05 22:05 Hgb 14.4 H Hct 45.2 H RDW 15.9 H Seg Neuts % (Manual) 82.0 H Lymphocytes % (Manual) 12.0 L Seg Neutrophils # Man 8.8 H VBG pH Sodium 125 L Potassium 5.6 H Chloride 82.6 L Carbon Dioxide 6 L* BUN 18 H Creatinine 1.5 H Glucose 729 H* POC Glucose > 500 H Hemoglobin A1c Calcium Phosphorus Total Protein 9.1 H 02/17/18 02/17/18 02/17/18 22:05 Unknown 23:59 Hgb Hct RDW Seg Neuts % (Manual) Lymphocytes % (Manual) Seg Neutrophils # Man VBG pH 7.079 L* Sodium Potassium Chloride Carbon Dioxide BUN Creatinine Glucose POC Glucose > 500 H Hemoglobin A1c Calcium Phosphorus 4.60 H Total Protein 02/18/18 02/18/18 02/18/18 00:34 01:30 01:40 Hgb Hct RDW Seg Neuts % (Manual) Lymphocytes % (Manual) Seg Neutrophils # Man VBG pH Sodium Potassium Chloride Carbon Dioxide BUN Creatinine Glucose POC Glucose > 500 H 443 H Hemoglobin A1c 13.6 H Calcium Phosphorus Total Protein 02/18/18 02/18/18 02/18/18 02:17 02:42 03:41 Hgb Hct RDW Seg Neuts % (Manual) Lymphocytes % (Manual) Seg Neutrophils # Man VBG pH Sodium 130 L Potassium 5.5 H Chloride 92.3 L Carbon Dioxide 6 L* BUN 18 H Creatinine 1.3 H Glucose 571 H* POC Glucose 489 H 426 H Hemoglobin A1c Calcium Phosphorus Total Protein 02/18/18 02/18/18 02/18/18 04:43 05:44 06:42 Hgb Hct RDW Seg Neuts % (Manual) Lymphocytes % (Manual) Seg Neutrophils # Man VBG pH Sodium Potassium Chloride Carbon Dioxide BUN Creatinine Glucose POC Glucose 342 H 315 H 276 H Hemoglobin A1c Calcium Phosphorus Total Protein 02/18/18 02/18/18 02/18/18 07:12 08:15 09:06 Hgb Hct RDW Seg Neuts % (Manual) Lymphocytes % (Manual) Seg Neutrophils # Man VBG pH Sodium 132 L Potassium Chloride Carbon Dioxide 12 L BUN Creatinine Glucose 269 H POC Glucose 228 H 204 H Hemoglobin A1c Calcium 8.3 L Phosphorus Total Protein 02/18/18 02/18/18 02/18/18 09:33 10:10 10:44 Hgb Hct RDW Seg Neuts % (Manual) Lymphocytes % (Manual) Seg Neutrophils # Man VBG pH Sodium 134 L Potassium Chloride Carbon Dioxide 15 L BUN Creatinine Glucose 165 H POC Glucose 195 H 171 H Hemoglobin A1c Calcium 8.1 L Phosphorus Total Protein 02/18/18 02/18/18 02/18/18 11:34 11:53 12:12 Hgb Hct RDW Seg Neuts % (Manual) Lymphocytes % (Manual) Seg Neutrophils # Man VBG pH Sodium 136 L Potassium Chloride Carbon Dioxide 13 L BUN Creatinine Glucose 151 H POC Glucose 187 H 157 H Hemoglobin A1c Calcium 8.3 L Phosphorus Total Protein 02/18/18 02/18/18 02/18/18 13:42 14:36 16:35 Hgb Hct RDW Seg Neuts % (Manual) Lymphocytes % (Manual) Seg Neutrophils # Man VBG pH Sodium Potassium Chloride Carbon Dioxide BUN Creatinine Glucose POC Glucose 127 H 147 H 221 H Hemoglobin A1c Calcium Phosphorus Total Protein 02/18/18 02/18/18 02/18/18 18:13 21:46 23:33 Hgb Hct RDW Seg Neuts % (Manual) Lymphocytes % (Manual) Seg Neutrophils # Man VBG pH Sodium 133 L 132 L Potassium Chloride Carbon Dioxide 14 L 16 L BUN Creatinine Glucose 205 H 315 H POC Glucose 321 H Hemoglobin A1c Calcium Phosphorus Total Protein 02/19/18 05:26 Hgb Hct RDW Seg Neuts % (Manual) Lymphocytes % (Manual) Seg Neutrophils # Man VBG pH Sodium 132 L Potassium Chloride Carbon Dioxide 16 L BUN Creatinine Glucose 393 H POC Glucose Hemoglobin A1c Calcium Phosphorus Total Protein
[2018-02-19] MEDS: NORVASC PO SCH (09:01)
[2018-02-19] MEDS: SODIUM BICARBONATE PO SCH ×3 (09:03→21:22)
[2018-02-19] MEDS: HumuLIN R SUB-Q SCH ×4 (09:03→21:21)
[2018-02-19] MEDS: LOVENOX SUB-Q SCH (09:04)
[2018-02-19] MEDS: SODIUM CHLORIDE FLUSH SYRINGE 10 ML IV SCH ×2 (09:05→22:32)
--- NOTE | 2018-02-19 15:23 | Progress Note ---
Assessment and Plan Assessment and plan: 47-year-old -Ch[place] female with past medical history significant for type 1 diabetes mellitus on insulin admitted to ICU with a diagnosis of DKA after she ran out of her insulin for the last 2 days. DKA - Resolved - Minute according to DKA protocol - Gap closed, still CO2 is low Type 1 diabetes mellitus with hyperglycemia - Patient was on 35 units of Novolin twice a day and resumed that - Her blood sugar was in the 300's, she was initially on 10 units of novolin , i just change to 35 - Continue high-dose sliding-scale insulin Hypertension - Continue home medications - Controlled DVT prophylaxis; on Lovenox Disposition - We'll transfer to follow once her sugar is better controlled History Interval history: The patient was seen and evaluated this morning, patient is sleepy because she said she didn't sleep overnight. She was arousable and alert and oriented. Hospitalist Physical - Physical exam Narrative exam: Not in cardiopulmonary distress. The patient appeared well nourished and normally developed. Vital signs as documented. Head exam is unremarkable. No scleral icterus . Neck is without jugular venous distension, thyromegaly, or carotid bruits. Lungs are clear to auscultation. Cardiac exam reveals regular rate and Rhythm. First and second heart sounds normal. No murmurs, rubs or gallops. Abdominal exam reveals normal bowel sounds, no masses, no organomegaly and no aortic enlargement. Extremities are nonedematous and both femoral and pedal pulses are normal. 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 No focal weakness. - Constitutional Vitals: Temp Pulse Resp BP Pulse Ox 98.7 F 91 H 16 110/75 99 02/19/18 12:00 02/19/18 15:00 02/19/18 15:00 02/19/18 15:00 02/19/18 15:00 Results - Labs CBC & Chem 7: 02/17/18 22:05 02/19/18 05:26 Labs: Laboratory Last Values WBC 10.7 K/mm3 (4.5-11.0) 02/17/18 22:05 RBC 4.99 M/mm3 (3.65-5.03) 02/17/18 22:05 Hgb 14.4 gm/dl (10.1-14.3) H 02/17/18 22:05 Hct 45.2 % (30.3-42.9) H 02/17/18 22:05 MCV 91 fl (79-97) 02/17/18 22:05 MCH 29 pg (28-32) 02/17/18 22:05 MCHC 32 % (30-34) 02/17/18 22:05 RDW 15.9 % (13.2-15.2) H 02/17/18 22:05 Plt Count 354 K/mm3 (140-440) 02/17/18 22:05 Add Manual Diff Complete 02/17/18 22:05 Total Counted 100 02/17/18 22:05 Seg Neutrophils % Stained Glass Painter 02/17/18 22:05 Seg Neuts % (Manual) 82.0 % (40.0-70.0) H 02/17/18 22:05 Band Neutrophils % 3.0 % 02/17/18 22:05 Lymphocytes % (Manual) 12.0 % (13.4-35.0) L 02/17/18 22:05 Reactive Lymphs % (Man) 0 % 02/17/18 22:05 Monocytes % (Manual) 3.0 % (0.0-7.3) 02/17/18 22:05 Eosinophils % (Manual) 0 % (0.0-4.3) 02/17/18 22:05 Basophils % (Manual) 0 % (0.0-1.8) 02/17/18 22:05 Metamyelocytes % 0 % 02/17/18 22:05 Myelocytes % 0 % 02/17/18 22:05 Promyelocytes % 0 % 02/17/18 22:05 Blast Cells % 0 % 02/17/18 22:05 Nucleated RBC % Not Reportable 02/17/18 22:05 Seg Neutrophils # Man 8.8 K/mm3 (1.8-7.7) H 02/17/18 22:05 Band Neutrophils # 0.3 K/mm3 02/17/18 22:05 Lymphocytes # (Manual) 1.3 K/mm3 (1.2-5.4) 02/17/18 22:05 Abs React Lymphs (Man) 0.0 K/mm3 02/17/18 22:05 Monocytes # (Manual) 0.3 K/mm3 (0.0-0.8) 02/17/18 22:05 Eosinophils # (Manual) 0.0 K/mm3 (0.0-0.4) 02/17/18 22:05 Basophils # (Manual) 0.0 K/mm3 (0.0-0.1) 02/17/18 22:05 Metamyelocytes # 0.0 K/mm3 02/17/18 22:05 Myelocytes # 0.0 K/mm3 02/17/18 22:05 Promyelocytes # 0.0 K/mm3 02/17/18 22:05 Blast Cells # 0.0 K/mm3 02/17/18 22:05 WBC Morphology Not Reportable 02/17/18 22:05 Hypersegmented Neuts Not Reportable 02/17/18 22:05 Hyposegmented Neuts Not Reportable 02/17/18 22:05 Hypogranular Neuts Not Reportable 02/17/18 22:05 Smudge Cells Not Reportable 02/17/18 22:05 Toxic Granulation Not Reportable 02/17/18 22:05 Toxic Vacuolation Not Reportable 02/17/18 22:05 Dohle Bodies Not Reportable 02/17/18 22:05 Pelger-Huet Anomaly Not Reportable 02/17/18 22:05 Maude Rods Not Reportable 02/17/18 22:05 Platelet Estimate Consistent w auto 02/17/18 22:05 Clumped Platelets Not Reportable 02/17/18 22:05 Plt Clumps, EDTA Not Reportable 02/17/18 22:05 Large Platelets Not Reportable 02/17/18 22:05 Giant Platelets Not Reportable 02/17/18 22:05 Platelet Satelliting Not Reportable 02/17/18 22:05 Plt Morphology Comment Not Reportable 02/17/18 22:05 RBC Morphology Not Reportable 02/17/18 22:05 Dimorphic RBCs Not Reportable 02/17/18 22:05 Polychromasia Not Reportable 02/17/18 22:05 Hypochromasia Not Reportable 02/17/18 22:05 Poikilocytosis Few 02/17/18 22:05 Anisocytosis Not Reportable 02/17/18 22:05 Microcytosis Not Reportable 02/17/18 22:05 Macrocytosis Not Reportable 02/17/18 22:05 Spherocytes Not Reportable 02/17/18 22:05 Pappenheimer Bodies Not Reportable 02/17/18 22:05 Sickle Cells Not Reportable 02/17/18 22:05 Target Cells Not Reportable 02/17/18 22:05 Tear Drop Cells Not Reportable 02/17/18 22:05 Ovalocytes Few 02/17/18 22:05 Helmet Cells Not Reportable 02/17/18 22:05 [place] Bodies Not Reportable 02/17/18 22:05 Minerva Rings Not Reportable 02/17/18 22:05 [place] Cells Not Reportable 02/17/18 22:05 Bite Cells Not Reportable 02/17/18 22:05 Crenated Cell Not Reportable 02/17/18 22:05 Elliptocytes Not Reportable 02/17/18 22:05 Acanthocytes (Spur) Not Reportable 02/17/18 22:05 Rouleaux Not Reportable 02/17/18 22:05 Hemoglobin C Crystals Not Reportable 02/17/18 22:05 Schistocytes Not Reportable 02/17/18 22:05 Malaria parasites Not Reportable 02/17/18 22:05 Herbert Bodies Not Reportable 02/17/18 22:05 Hem Pathologist Commnt No 02/17/18 22:05 VBG pH 7.079 (7.320-7.420) L* 02/17/18 22:05 Sodium 132 mmol/L (137-145) L 02/19/18 05:26 Potassium 4.2 mmol/L (3.6-5.0) 02/19/18 05:26 Chloride 100.3 mmol/L (98-107) 02/19/18 05:26 Carbon Dioxide 16 mmol/L (22-30) L 02/19/18 05:26 Anion Gap 20 mmol/L 02/19/18 05:26 BUN 14 mg/dL (7-17) 02/19/18 05:26 Creatinine 0.9 mg/dL (0.7-1.2) 02/19/18 05:26 Estimated GFR > 60 ml/min 02/19/18 05:26 BUN/Creatinine Ratio 16 % 02/19/18 05:26 Glucose 393 mg/dL (65-100) H 02/19/18 05:26 POC Glucose 411 (70-105) H 02/19/18 11:20 Hemoglobin A1c 13.6 % (4-6) H 02/18/18 01:30 Calcium 8.4 mg/dL (8.4-10.2) 02/19/18 05:26 Phosphorus 4.60 mg/dL (2.5-4.5) H 02/17/18 Unknown Magnesium 1.90 mg/dL (1.7-2.3) 02/17/18 Unknown Total Bilirubin 0.30 mg/dL (0.1-1.2) 02/17/18 22:05 AST 12 units/L (5-40) 02/17/18 22:05 ALT 8 units/L (7-56) 02/17/18 22:05 Alkaline Phosphatase 126 units/L (35-129) 02/17/18 22:05 Total Protein 9.1 g/dL (6.3-8.2) H 02/17/18 22:05 Albumin 4.1 g/dL (3.9-5) 02/17/18 22:05 Albumin/Globulin Ratio 0.8 % 02/17/18 22:05 Lipase 48 units/L (13-60) 02/17/18 22:05 Urine Color Yellow (Yellow) 02/17/18 21:24 Urine Turbidity Clear (Clear) 02/17/18 21:24 Urine pH 5.0 (5.0-7.0) 02/17/18 21:24 Ur Specific [place] 1.026 (1.003-1.030) 02/17/18 21:24 Urine Protein 30 mg/dl mg/dL (Negative) 02/17/18 21:24 Urine Glucose (UA) >=500 mg/dL (Negative) 02/17/18 21:24 Urine Ketones 80 mg/dL (Negative) 02/17/18 21:24 Urine Blood Lg (Negative) 02/17/18 21:24 Urine Nitrite Neg (Negative) 02/17/18 21:24 Urine Bilirubin Neg (Negative) 02/17/18 21:24 Urine Urobilinogen < 2.0 mg/dL (<2.0) 02/17/18 21:24 Ur Leukocyte Esterase Neg (Negative) 02/17/18 21:24 Urine WBC (Auto) 1.0 /HPF (0.0-6.0) 02/17/18 21:24 Urine RBC (Auto) 3.0 /HPF (0.0-6.0) 02/17/18 21:24 U Epithel Cells (Auto) 9.0 /HPF (0-13.0) 02/17/18 21:24 Urine Bacteria (Auto) 1+ /HPF (Negative) 02/17/18 21:24 Urine Mucus Few /HPF 02/17/18 21:24 Urine HCG, Qual Negative (Negative) 02/17/18 23:39
[2018-02-19] MEDS ORDERED: NACL 0.9% 1000 ML 1,000 ML IV SCH (16:00)
[2018-02-20] MEDS: HumuLIN R SUB-Q SCH ×2 (08:37→13:03)
[2018-02-20] MEDS: SODIUM BICARBONATE PO SCH ×2 (08:40→13:07)
[2018-02-20 09:20] LABS: BUN/Creatinine Ratio 21; Blood Urea Nitrogen 15 mg/dL (7-17); Calcium 8.1 mg/dL (8.4-10.2); Hemolysis Index 1
[2018-02-20] MEDS: NORVASC PO SCH (09:22)
[2018-02-20] MEDS: LOVENOX SUB-Q SCH (09:22)
[2018-02-20] MEDS: SODIUM CHLORIDE FLUSH SYRINGE 10 ML IV SCH (09:26)
--- NOTE | 2018-02-20 10:23 | Discharge Summary ---
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 patient is non compliant with her medications. DKA - Resolved - treated according to DKA protocol - Gap closed Type 1 diabetes mellitus with hyperglycemia - Patient was on 35 units of Novolin twice a day and resumed that. - Continue high-dose sliding-scale insulin - patient's Blood sugar was controlled and discharged home. Hypertension - Continue home medications - Controlled patient discharged home in a stable conditions. Appropriate home medication script was given at the time of discharge. Disposition: DC-01 TO HOME OR SELFCARE Time spent for discharge: 34 minutes - Discharge Diagnoses (1) Diabetic ketoacidosis Status: Acute (2) Noncompliance with medication regimen Status: Acute (3) Hypertension Status: Chronic Core Measure Documentation - Palliative Care Palliative Care/ Comfort Measures: Not Applicable - Core Measures Any of the following diagnoses?: none Exam - Physical Exam Narrative exam: Not in cardiopulmonary distress. The patient appeared well nourished and normally developed. Vital signs as documented. Head exam is unremarkable. No scleral icterus . Neck is without jugular venous distension, thyromegaly, or carotid bruits. Lungs are clear to auscultation. Cardiac exam reveals regular rate and Rhythm. First and second heart sounds normal. No murmurs, rubs or gallops. Abdominal exam reveals normal bowel sounds, no masses, no organomegaly and no aortic enlargement. Extremities are nonedematous and both femoral and pedal pulses are normal. 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 No focal weakness. - Constitutional Vitals: Temp Pulse Resp BP Pulse Ox 98.4 F 78 18 128/82 98 02/20/18 07:56 02/20/18 07:56 02/20/18 07:56 02/20/18 09:22 02/20/18 08:04 Plan Activity: no restrictions Weight Bearing Status: Full Weight Bearing Diet: low salt, diabetic Additional Instructions: Please follow at [facility] in 1-2 weeks Follow up with: PRIMARY CARE, [Primary Care Provider] - 7 Days Forms: Work/School Release Form Prescriptions: amLODIPine [Norvasc] 5 mg PO DAILY #30 tablet Insulin NPH, Human [NovoLIN N] 40 unit SUB-Q BIDDIAB #2 vial Insulin Regular, Human [Humulin R] See Protocol SUB-Q DAILY #1 vial
--- NOTE | 2018-02-20 14:06 | Progress Note ---
Assessment and Plan 1. Uncontrolled diabetes with diabetic ketoacidosis. 2. Metabolic acidosis. 3. Acute hypoxemic respiratory failure. 4. Hyponatremia. 5. Hyperkalemia. 6. Acute kidney injury. 7. Obesity. 8. Uncontrolled hypertension. 9. Medication noncompliance. Subjective Date of service: 02/20/18 Principal diagnosis: Diabetic ketoacidosis Objective Vital Signs - 12hr 02/20/18 02/20/18 02/20/18 07:56 08:04 09:22 Temperature 98.4 F Pulse Rate 78 Respiratory 18 Rate Blood Pressure 128/82 128/82 O2 Sat by Pulse 98 98 Oximetry CBC and BMP: 02/17/18 22:05 02/20/18 08:06 Abnormal lab findings: Abnormal Labs 02/17/18 02/17/18 02/17/18 21:10 22:05 22:05 Hgb 14.4 H Hct 45.2 H RDW 15.9 H Seg Neuts % (Manual) 82.0 H Lymphocytes % (Manual) 12.0 L Seg Neutrophils # Man 8.8 H VBG pH Sodium 125 L Potassium 5.6 H Chloride 82.6 L Carbon Dioxide 6 L* BUN 18 H Creatinine 1.5 H Glucose 729 H* POC Glucose > 500 H Hemoglobin A1c Calcium Phosphorus Total Protein 9.1 H 02/17/18 02/17/18 02/17/18 22:05 Unknown 23:59 Hgb Hct RDW Seg Neuts % (Manual) Lymphocytes % (Manual) Seg Neutrophils # Man VBG pH 7.079 L* Sodium Potassium Chloride Carbon Dioxide BUN Creatinine Glucose POC Glucose > 500 H Hemoglobin A1c Calcium Phosphorus 4.60 H Total Protein 02/18/18 02/18/18 02/18/18 00:34 01:30 01:40 Hgb Hct RDW Seg Neuts % (Manual) Lymphocytes % (Manual) Seg Neutrophils # Man VBG pH Sodium Potassium Chloride Carbon Dioxide BUN Creatinine Glucose POC Glucose > 500 H 443 H Hemoglobin A1c 13.6 H Calcium Phosphorus Total Protein 02/18/18 02/18/18 02/18/18 02:17 02:42 03:41 Hgb Hct RDW Seg Neuts % (Manual) Lymphocytes % (Manual) Seg Neutrophils # Man VBG pH Sodium 130 L Potassium 5.5 H Chloride 92.3 L Carbon Dioxide 6 L* BUN 18 H Creatinine 1.3 H Glucose 571 H* POC Glucose 489 H 426 H Hemoglobin A1c Calcium Phosphorus Total Protein 02/18/18 02/18/18 02/18/18 04:43 05:44 06:42 Hgb Hct RDW Seg Neuts % (Manual) Lymphocytes % (Manual) Seg Neutrophils # Man VBG pH Sodium Potassium Chloride Carbon Dioxide BUN Creatinine Glucose POC Glucose 342 H 315 H 276 H Hemoglobin A1c Calcium Phosphorus Total Protein 02/18/18 02/18/18 02/18/18 07:12 08:15 09:06 Hgb Hct RDW Seg Neuts % (Manual) Lymphocytes % (Manual) Seg Neutrophils # Man VBG pH Sodium 132 L Potassium Chloride Carbon Dioxide 12 L BUN Creatinine Glucose 269 H POC Glucose 228 H 204 H Hemoglobin A1c Calcium 8.3 L Phosphorus Total Protein 02/18/18 02/18/18 02/18/18 09:33 10:10 10:44 Hgb Hct RDW Seg Neuts % (Manual) Lymphocytes % (Manual) Seg Neutrophils # Man VBG pH Sodium 134 L Potassium Chloride Carbon Dioxide 15 L BUN Creatinine Glucose 165 H POC Glucose 195 H 171 H Hemoglobin A1c Calcium 8.1 L Phosphorus Total Protein 02/18/18 02/18/18 02/18/18 11:34 11:53 12:12 Hgb Hct RDW Seg Neuts % (Manual) Lymphocytes % (Manual) Seg Neutrophils # Man VBG pH Sodium 136 L Potassium Chloride Carbon Dioxide 13 L BUN Creatinine Glucose 151 H POC Glucose 187 H 157 H Hemoglobin A1c Calcium 8.3 L Phosphorus Total Protein 02/18/18 02/18/18 02/18/18 13:42 14:36 16:35 Hgb Hct RDW Seg Neuts % (Manual) Lymphocytes % (Manual) Seg Neutrophils # Man VBG pH Sodium Potassium Chloride Carbon Dioxide BUN Creatinine Glucose POC Glucose 127 H 147 H 221 H Hemoglobin A1c Calcium Phosphorus Total Protein 02/18/18 02/18/18 02/18/18 18:13 21:46 23:33 Hgb Hct RDW Seg Neuts % (Manual) Lymphocytes % (Manual) Seg Neutrophils # Man VBG pH Sodium 133 L 132 L Potassium Chloride Carbon Dioxide 14 L 16 L BUN Creatinine Glucose 205 H 315 H POC Glucose 321 H Hemoglobin A1c Calcium Phosphorus Total Protein 02/19/18 02/19/18 02/19/18 05:26 08:14 11:20 Hgb Hct RDW Seg Neuts % (Manual) Lymphocytes % (Manual) Seg Neutrophils # Man VBG pH Sodium 132 L Potassium Chloride Carbon Dioxide 16 L BUN Creatinine Glucose 393 H POC Glucose 340 H 411 H Hemoglobin A1c Calcium Phosphorus Total Protein 02/19/18 02/19/18 02/20/18 15:40 21:12 06:39 Hgb Hct RDW Seg Neuts % (Manual) Lymphocytes % (Manual) Seg Neutrophils # Man VBG pH Sodium Potassium Chloride Carbon Dioxide BUN Creatinine Glucose POC Glucose 255 H 224 H 254 H Hemoglobin A1c Calcium Phosphorus Total Protein 02/20/18 02/20/18 08:06 11:45 Hgb Hct RDW Seg Neuts % (Manual) Lymphocytes % (Manual) Seg Neutrophils # Man VBG pH Sodium Potassium 3.3 L D Chloride Carbon Dioxide 21 L BUN Creatinine Glucose 257 H POC Glucose 261 H Hemoglobin A1c Calcium 8.1 L Phosphorus Total Protein
--- NOTE | 2018-02-20 14:21 | Query-Kidney Disease ---
Dear Ellis Date: 02/20/2018 World Designer/CDS: kath Phone#:__[phone] Exercise your independent professional judgment when responding to query. Questions asked do not imply a particular answer is desired or expected. We greatly appreciate your clarification on this issue. Clinical Documentation States: 47-year-old man history of hypertension, diabetes becomes to emergency room for evaluation of generalized weakness, nausea and vomiting and generalized abdominal cramping. Taken from H&P note (Veronica Gates) on 02/18/18. Assessment and Plan:Taken from progress note () on 02/19/18. DKA Type 1 diabetes mellitus with hyperglycemia Clinical Findings Show: 02/17/18 02/18/18 02/19/18 Creatinine 1.5 1.3 0.9 BUN 18 H 15 H 14 H BUN/Cr ratio 12% 16% 16% Please Clarify if you mean: Acute Renal Failure with or due to: [ ] Tubular Necrosis [ ] Cortical Necrosis [ ] Shock Kidney [x ] Vasomotor Nephropathy [ ] Lower Tubular Nephrosis [ ] Renal Tubular Stasis [ ] Tubular Nephrosis [ ] Medullary Necrosis [ ] Acute Renal Failure (unspecified) [ ] Other: [ ] Comment/Explanation: Chronic Kidney Disease (Please atka applicable stage) 3 Stages Description GFR [ ] CKD Stage 1 90 mL/min or more [ ] CKD Stage 2 Mild decrease in Kidney function 60 to 89 mL/min [ ] CKD Stage 3 Moderate decrease in kidney function 30-59 [ ] CKD Stage 4 Severe decrease in kidney function 15-29 [ ] CKD Stage 5 Kidney failure; requiring dialysis or transplantation <15 [ ] ESRD Patient requiring dialysis for > 3 months or kidney transplant irrespective of level of GFR; Applicable for 1 year after kidney transplant [ ] Other: [ ] Comment/Explanation: Present on Admission: [x ] Yes (Y) [ ] Clinically undeterminable (W) [ ] No (N) Please also document response in your Progress Notes and/or Discharge Summary and indicate if the condition was present on admission MTDD
[2018-02-20] MEDS ORDERED: K-DUR PO ONE (15:00)
[2018-02-20 17:06] VITALS: BP 124/76
== END 2018-02-20 17:45 | disposition home or self-care (01) | DRG 682 ==
LOC: ED 20:51 → CC1 02-18 01:53 → 3A 02-19 22:58
PROVIDERS: ADMIT Internal Medicine; ATTEND Internal Medicine
DX: N17.0 Acute kidney failure with tubular necrosis (principal); E10.10 Type 1 diabetes mellitus with ketoacidosis without coma; J96.01 Acute respiratory failure with hypoxia; E87.1 Hypo-osmolality and hyponatremia; E87.5 Hyperkalemia; E66.9 Obesity, unspecified; N28.9 Disorder of kidney and ureter, unspecified; E86.0 Dehydration; I10 Essential (primary) hypertension; Z88.0 Allergy status to penicillin; Z91.14 Patient's other noncompliance with medication regimen; Z79.4 Long term (current) use of insulin; Z83.3 Family history of diabetes mellitus; Z68.30 Body mass index [BMI] 30.0-30.9, adult
CPT/HCPCS: 36415; 80048; 80053; 81001; 81025; 82805; 82962; 83036; 83690; 83735; 84100; 85007; 85025; 93005; 93010; 94760; 96361; 96374; 96375; J1650; J1815; J2405; J7030; J7070

== ENCOUNTER 2020-10-16 23:55 | Inpatient (IN) | payer OTHER ==
[2020-10-17] MEDS ORDERED: FAMOTIDINE 20 MG/2 ML INJ IV ONE (00:08)
[2020-10-17] MEDS ORDERED: SODIUM CHLORIDE 0.9% 1000 ML 1,000 ML IV ONE (00:08)
[2020-10-17] MEDS ORDERED: ONDANSETRON 4 MG/2 ML INJ IV ONE (00:08)
--- NOTE | 2020-10-17 00:11 | Event Note ---
ED Screening Note Date of service: 10/17/20 ED Screening Note: Patient is a 50-year-old -[place] female with a history of hypertension and insulin-dependent diabetes who presents to the ED with complaint of acute onset persistent nausea and vomiting, generalized weakness, shortness of breath on exertion, persistent dry cough, lack of appetite and fatigue for the last 3 days. Patient states that she has had multiple episodes of nausea and vomiting and that prior to arrival in the ED, her blood sugar was reading "high" when measured by the EMS crew. Patient denies chest pain, abdominal pain, dizziness, syncope, palpitations, dysuria, urinary frequency and urgency, nasal and sinus congestion or sore throat and diarrhea. This initial assessment/diagnostic orders/clinical plan/treatment(s) is/are subject to change based on patients health status, clinical progression and re- assessment by fellow clinical providers in the ED. Further treatment and workup at subsequent clinical providers discretion. Patient/guardian urged not to elope from the ED as their condition may be serious if not clinically assessed and managed. Initial orders include: CBC, CMP, troponin, BNP, chest x-ray, UA and EKG
--- NOTE | 2020-10-17 00:39 | XRay Report ---
CHEST 1 VIEW 12:27 AM INDICATION / CLINICAL INFORMATION: Dyspnea. COMPARISON: None available. FINDINGS: SUPPORT DEVICES: None. HEART / MEDIASTINUM: The heart size and pulmonary vasculature are normal. LUNGS / PLEURA: No acute pulmonary or pleural abnormality. No pneumothorax. ADDITIONAL FINDINGS: There is a small bone island in the left seventh posterior rib versus a calcifie d granuloma overlying the rib. There is mild calcific tendinopathy involving the left rotator cuff. IMPRESSION: No acute pulmonary disease. Signer Name: Jerson Mota MD Signed: 10/17/2020 12:35 AM Workstation Name: [id number]
[2020-10-17] MEDS ORDERED: dexAMETHasone 4 MG/ML VIAL IV ONE (01:25)
--- NOTE | 2020-10-17 01:30 | Emergency Department Report ---
ED General Adult HPI - General Chief complaint: Dyspnea/Respdistress Stated complaint: HIGH SUGAR,SOB PUI?: Yes Time Seen by Provider: 10/17/20 00:43 Source: patient, RN notes reviewed Mode of arrival: Ambulatory Limitations: Physical Limitation - History of Present Illness Initial comments: The patient was evaluated in the emergency department for symptoms described in the history of present illness. He/she was evaluated in the context of the global COVID-19 pandemic, which necessitated consideration that the patient might be at risk for infection with the virus that causes COVID-19. Institutional protocols and algorithms that pertain to the evaluation of patients at risk for COVID-19 are in a state of rapid change based on information released by regulatory bodies including the CDC and federal and state organizations. These policies and algorithms were followed during the patient's care in the emergency department. Please note that these policies, procedures and recommendations changed on a rapid basis. During the entire history and physical examination, I had on complete personal protective equipment. The patient is a 50-year-old female. She has a history of diabetes and hypertension. She presents to the ER today with a complaint of a few days shortness of breath, legs, fatigue and weakness. No physical pain. Positive sensation of dehydration. No loss of taste or smell. No fever. Positive n ausea. No dysuria. No diarrhea. Positive body aches. Reports compliance with medications. Denies known Covid exposure. States that she is not . Denies travel, surgery, posterior leg pain and leg swelling. -: Gradual, days(s) Consistency: constant Improves with: rest Worsens with: movement - Related Data Previous Rx's Medication Instructions Recorded Last Taken Type Insulin NPH, Human [NovoLIN N] 40 unit SUB-Q BIDDIAB #2 vial 02/20/18 Unknown Rx Insulin Regular, Human [Humulin R] See Protocol SUB-Q DAILY #1 vial 02/20/18 Unknown Rx amLODIPine 5 mg PO DAILY #30 tablet 02/20/18 Unknown Rx Allergies Allergy/AdvReac Type Severity Reaction Status Date / Time Penicillins Allergy Unknown Verified 10/19/14 21:41 ED Review of Systems ROS: Stated complaint: HIGH SUGAR,SOB Other details as noted in HPI Constitutional: malaise, weakness. denies: fever Eyes: denies: eye discharge ENT: congestion Respiratory: shortness of breath. denies: cough Cardiovascular: denies: chest pain Gastrointestinal: nausea. denies: abdominal pain Genitourinary: denies: dysuria Musculoskeletal: myalgia Neurological: weakness Psychiatric: anxiety Hematological/Lymphatic: denies: easy bleeding ED Past Medical Hx - Past Medical History Previous Medical History?: Yes Hx Hypertension: Yes Hx Diabetes: Yes Hx HIV: No - Surgical History Past Surgical History?: No - Social History Smoking Status: Never Smoker Substance Use Type: None - Medications Home Medications: Home Medications Medication Instructions Recorded Confirmed Last Taken Type Insulin NPH, Human [NovoLIN N] 40 unit SUB-Q BIDDIAB #2 vial 02/20/18 Unknown Rx Insulin Regular, Human [Humulin R] See Protocol SUB-Q DAILY #1 vial 02/20/18 Unknown Rx amLODIPine 5 mg PO DAILY #30 tablet 02/20/18 Unknown Rx ED Physical Exam - General Limitations: Physical Limitation General appearance: alert, anxious, in distress, obese - Head Head exam: Present: atraumatic, normocephalic - Eye Eye exam: Present: normal appearance, EOMI. Absent: nystagmus - ENT ENT exam: Present: normal exam, normal orophraynx, mucous membranes dry, normal external ear exam - Neck Neck exam: Present: normal inspection, full ROM. Absent: tenderness, meningismus - Respiratory Respiratory exam: Present: normal lung sounds bilaterally. Absent: respiratory distress, wheezes, rales, rhonchi, stridor - Cardiovascular Cardiovascular Exam: Present: normal rhythm, tachycardia, normal heart sounds. Absent: systolic murmur, diastolic murmur, rubs, gallop - GI/Abdominal GI/Abdominal exam: Present: soft. Absent: distended, tenderness, guarding, rebound, rigid, pulsatile mass - Extremities Exam Extremities exam: Present: normal inspection, full ROM, other (2+ pulses noted in the bilateral upper and lower extremities. There is no palpable cord. nega tive Homans sign. Muscular compartments are soft. The pelvis is stable.). Absent: pedal edema, calf tenderness - Back Exam Back exam: Present: normal inspection, full ROM. Absent: tenderness, CVA tenderness (R), CVA tenderness (L), paraspinal tenderness, vertebral tenderness - Neurological Exam Neurological exam: Present: alert, other (No facial droop. Tongue midline. Extraocular movements intact bilaterally. Facial sensation intact to light touch in V1, V2, V3 distribution bilaterally. 5 and a 5 strength in 4 extremities. Sensation intact to light touch in 4 extremities.). Absent: motor sensory deficit - Psychiatric Psychiatric exam: Present: anxious - Skin Skin exam: Present: warm, dry, intact, normal color. Absent: rash ED Course Vital Signs 10/17/20 00:02 Temperature 97.3 F L Pulse Rate 118 H Respiratory 22 Rate Blood Pressure 150/85 O2 Sat by Pulse 100 Oximetry - Reevaluation(s) Reevaluation #1: 10/17/20 02:27 Differential diagnosis, including but not limited to: Diabetic ketoacidosis, pneumonia, urinary tract infection, hyperosmolar state, dehydration Assessment and plan: 50-year-old female who is markedly tachypneic and tachycardic, appears to have house coordinator small respirations, without DVT or pulmonary em bolism risk factors, suspicious for COVID-19, and probable superimposed diabetic ketoacidosis. Place patient on isolation. Start supplemental oxygen and steroids. Appreciate that patient has hyperglycemia. However, during trial of ambulation, desaturated to 91%. Send Covid labs to risk stratify for cytokine storm. Please courtesy consultation for infectious disease. Initiate fluids, insulin therapy and insulin drip. Admit to the medical service. Discussed this plan of care with the patient, who verbalized understanding, and is amenable to this plan of care. Reevaluation #2: 10/17/20 02:28 Venous pH very acidotic, patient found to have hyperglycemia, anion gap acidosis, hyperkalemia, pseudohyponatremia. Elevated lipase reviewed and appreciated. This is most likely secondary to hyperglycemia. There is no abdominal tenderness, rebound or guarding. With fluids, and insulin therapy, hyperkalemia should improve. Hospital physician, Dr. Rock, to admit to the intensive care unit. ED Medical Decision Making - Lab Data Result diagrams: 10/17/20 00:25 10/17/20 00:25 Lab Results 10/17/20 10/17/20 10/17/20 Range/Units 00:12 00:25 00:25 WBC 10.2 (4.5-11.0) K/mm3 RBC 5.49 H (3.65-5.03) M/mm3 Hgb 15.5 H (10.1-14.3) gm/dl Hct 48.8 H (30.3-42.9) % MCV 89 (79-97) fl MCH 28 (28-32) pg MCHC 32 (30-34) % RDW 17.1 H (13.2-15.2) % Plt Count 219 (140-440) K/mm3 Lymph % (Auto) 7.2 L (13.4-35.0) % [place] % (Auto) 3.8 (0.0-7.3) % Eos % (Auto) 0.2 (0.0-4.3) % Baso % (Auto) 0.7 (0.0-1.8) % Lymph # (Auto) 0.7 L (1.2-5.4) K/mm3 [place] # (Auto) 0.4 (0.0-0.8) K/mm3 Eos # (Auto) 0.0 (0.0-0.4) K/mm3 Baso # (Auto) 0.1 (0.0-0.1) K/mm3 Seg Neutrophils % 88.1 H (40.0-70.0) % Seg Neutrophils # 8.9 H (1.8-7.7) K/mm3 PT (12.2-14.9) Sec. INR (0.87-1.13) D-Dimer (0-234) ng/mlDDU Estimated GFR 39 ml/min BUN/Creatinine Ratio 21 % POC Glucose 454 H (70-105) mg/dL Troponin T < 0.010 (0.00-0.029) ng/mL NT-Pro-B Natriuret Pep 127.2 (0-450) pg/mL Albumin/Globulin Ratio 1.1 % 10/17/20 Range/Units 01:34 WBC (4.5-11.0) K/mm3 RBC (3.65-5.03) M/mm3 Hgb (10.1-14.3) gm/dl Hct (30.3-42.9) % MCV (79-97) fl MCH (28-32) pg MCHC (30-34) % RDW (13.2-15.2) % Plt Count (140-440) K/mm3 Lymph % (Auto) (13.4-35.0) % [place] % (Auto) (0.0-7.3) % Eos % (Auto) (0.0-4.3) % Baso % (Auto) (0.0-1.8) % Lymph # (Auto) (1.2-5.4) K/mm3 [place] # (Auto) (0.0-0.8) K/mm3 Eos # (Auto) (0.0-0.4) K/mm3 Baso # (Auto) (0.0-0.1) K/mm3 Seg Neutrophils % (40.0-70.0) % Seg Neutrophils # (1.8-7.7) K/mm3 PT 15.4 H (12.2-14.9) Sec. INR 1.24 H (0.87-1.13) D-Dimer 1017.46 H (0-234) ng/mlDDU Estimated GFR ml/min BUN/Creatinine Ratio % POC Glucose (70-105) mg/dL Troponin T (0.00-0.029) ng/mL NT-Pro-B Natriuret Pep (0-450) pg/mL Albumin/Globulin Ratio % Lab Results 10/17/20 10/17/20 10/17/20 Range/Units 00:12 00:25 00:25 WBC 10.2 (4.5-11.0) K/mm3 RBC 5.49 H (3.65-5.03) M/mm3 Hgb 15.5 H (10.1-14.3) gm/dl Hct 48.8 H (30.3-42.9) % MCV 89 (79-97) fl MCH 28 (28-32) pg MCHC 32 (30-34) % RDW 17.1 H (13.2-15.2) % Plt Count 219 (140-440) K/mm3 Lymph % (Auto) 7.2 L (13.4-35.0) % [place] % (Auto) 3.8 (0.0-7.3) % Eos % (Auto) 0.2 (0.0-4.3) % Baso % (Auto) 0.7 (0.0-1.8) % Lymph # (Auto) 0.7 L (1.2-5.4) K/mm3 [place] # (Auto) 0.4 (0.0-0.8) K/mm3 Eos # (Auto) 0.0 (0.0-0.4) K/mm3 Baso # (Auto) 0.1 (0.0-0.1) K/mm3 Seg Neutrophils % 88.1 H (40.0-70.0) % Seg Neutrophils # 8.9 H (1.8-7.7) K/mm3 PT (12.2-14.9) Sec. INR (0.87-1.13) D-Dimer (0-234) ng/mlDDU Estimated GFR 39 ml/min BUN/Creatinine Ratio 21 % POC Glucose 454 H (70-105) mg/dL Troponin T < 0.010 (0.00-0.029) ng/mL NT-Pro-B Natriuret Pep 127.2 (0-450) pg/mL Albumin/Globulin Ratio 1.1 % 10/17/20 Range/Units 01:34 WBC (4.5-11.0) K/mm3 RBC (3.65-5.03) M/mm3 Hgb (10.1-14.3) gm/dl Hct (30.3-42.9) % MCV (79-97) fl MCH (28-32) pg MCHC (30-34) % RDW (13.2-15.2) % Plt Count (140-440) K/mm3 Lymph % (Auto) (13.4-35.0) % [place] % (Auto) (0.0-7.3) % Eos % (Auto) (0.0-4.3) % Baso % (Auto) (0.0-1.8) % Lymph # (Auto) (1.2-5.4) K/mm3 [place] # (Auto) (0.0-0.8) K/mm3 Eos # (Auto) (0.0-0.4) K/mm3 Baso # (Auto) (0.0-0.1) K/mm3 Seg Neutrophils % (40.0-70.0) % Seg Neutrophils # (1.8-7.7) K/mm3 PT 15.4 H (12.2-14.9) Sec. INR 1.24 H (0.87-1.13) D-Dimer 1017.46 H (0-234) ng/mlDDU Estimated GFR ml/min BUN/Creatinine Ratio % POC Glucose (70-105) mg/dL Troponin T (0.00-0.029) ng/mL NT-Pro-B Natriuret Pep (0-450) pg/mL Albumin/Globulin Ratio % Vital Signs 10/17/20 00:02 Temperature 97.3 F L Pulse Rate 118 H Respiratory 22 Rate Blood Pressure 150/85 O2 Sat by Pulse 100 Oximetry - EKG Data -: EKG Interpreted by Pa EKG shows normal: sinus rhythm Rate: tachycardia - EKG Data 10/17/20 02:24 Sinus rhythm, tachycardia, 107 bpm. Normal axis, left ventricular hypertrophy, QTC prolonged, 478 ms, motion artifact, and poor R wave progression. Abnormal EKG. Not a STEMI. EKG is grossly unchanged from prior EKG from February 2018 - Radiology Data Radiology results: pending, report reviewed, image reviewed CHEST 1 VIEW 12:27 AM INDICATION / CLINICAL INFORMATION: Dyspnea. COMPARISON: None available. FINDINGS: SUPPORT DEVICES: None. HEART / MEDIASTINUM: The heart size and pulmonary vasculature are normal. LUNGS / PLEURA: No acute pulmonary or pleural abnormality. No pneumothorax. ADDITIONAL FINDINGS: There is a small bone island in the left seventh posterior rib versus a calcified granuloma overlying the rib. There is mild calcific tendinopathy involving the left rotator cuff. IMPRESSION: No acute pulmonary disease. Signer Name: Jerson Mota MD Signed: 10/16/2020 11:35 PM Workstation Name: [id number] Critical Care Time: Yes Critical care time in (mins) excluding proc time.: 35 Critical care attestation.: If time is entered above; I have spent that time in minutes in the direct care of this critically ill patient, excluding procedure time. ED Disposition Clinical Impression: Diabetic ketoacidosis, Noncompliance with medication regimen, Acute renal insufficiency, Suspected 2019 novel coronavirus infection, Hyperkalemia, Elevated lipase Disposition: OP ADMIT IP TO THIS HOSP Is pt being admited?: Yes Does the pt Need Aspirin: No Condition: Critical Instructions: Diabetic Ketoacidosis (ED) Referrals: PRIMARY CARE, [Primary Care Provider] - 3-5 Days
[2020-10-17 01:37] LABS: Basophils # (Auto) 0.1 K/mm3 (0.0-0.1); Basophils % (Auto) 0.7 % (0.0-1.8); Eosinophils % (Auto) 0.2 % (0.0-4.3); Hematocrit 48.8 % (30.3-42.9); Hemoglobin 15.5 gm/dl (10.1-14.3); Lymphocytes # (Auto) 0.7 K/mm3 (1.2-5.4); Lymphocytes % (Auto) 7.2 % (13.4-35.0); Mean Corpuscular HGB Conc 32 % (30-34); Mean Corpuscular Volume 89 fl (79-97); Monocytes # (Auto) 0.4 K/mm3 (0.0-0.8); Monocytes % (Auto) 3.8 % (0.0-7.3); Red Blood Count 5.49 M/mm3 (3.65-5.03); Red Cell Distribution Width 17.1 % (13.2-15.2)
[2020-10-17 01:38] LABS: Platelet Count 219 K/mm3 (140-440)
[2020-10-17 02:03] LABS: Alanine Aminotransferase 9 units/L (7-56); Albumin 4.6 g/dL (3.9-5); BUN/Creatinine Ratio 21; Blood Urea Nitrogen 35 mg/dL (7-17); Calcium 9.6 mg/dL (8.4-10.2); Hemolysis Index 117
[2020-10-17 02:21] LABS: INR 1.24 (0.87-1.13)
[2020-10-17] MEDS ORDERED: SODIUM CHLORIDE 0.9% 1000 ML 2,000 ML IV ONE (02:29)
[2020-10-17] MEDS ORDERED: DEXTROSE 50% IN WATER (25GM) 50 ML SYRINGE IV PRN (02:29)
[2020-10-17] MEDS ORDERED: INSULIN REGULAR, HUMAN 100 UNITS/1 ML IV ONE (02:29)
[2020-10-17 02:31] LABS: HCG,Quantitative < 2 mIU/mL (0-4)
--- NOTE | 2020-10-17 02:52 | History and Physical Report ---
History of Present Illness Date of examination: 10/17/20 Chief complaint: Shortness of breath Respiratory distress Hyperglycemia History of present illness: 50-year-old female with history of diabetes and hypertension was brought to the emergency room because of shortness of breath, legs, fatigue and weakness for last few days. Patient complaint shortness of breath, no loss of taste or smell. No fever. Positive nausea. No dysuria. No diarrhea. Positive body aches. Reports compliance with medications. Denies known Covid exposure. In the emergency room patient is found to have blood glucose of 547, potassium of 6.5 BUN 35 creatinine 1.7 and lactic acid 2.90. Patient is found to have DKA Past History Past Medical History: diabetes, hypertension Medications and Allergies Allergies Allergy/AdvReac Type Severity Reaction Status Date / Time Penicillins Allergy Unknown Verified 10/19/14 21:41 Home Medications Medication Instructions Recorded Confirmed Last Taken Type Insulin NPH, Human [NovoLIN N] 40 unit SUB-Q BIDDIAB #2 vial 02/20/18 Unknown R x Insulin Regular, Human [Humulin R] See Protocol SUB-Q DAILY #1 vial 02/20/18 Unknown Rx amLODIPine 5 mg PO DAILY #30 tablet 02/20/18 Unknown Rx Active Meds: Active Medications Amlodipine Besylate (Amlodipine 5 Mg Tab) 5 mg PO DAILY TREVOR Dextrose (Dextrose 50% In Water (25gm) 50 Ml Syringe) 0 ml IV Q30MIN PRN; Protocol PRN Reason: Hypoglycemia Famotidine (Famotidine 20 Mg Tab) 20 mg PO BID TREVOR Heparin Sodium (Porcine) (Heparin 5,000 Unit/1 Ml Vial) 5,000 unit SUB-Q Q8HR TREVOR Insulin Human Regular 100 (units/ Sodium Chloride) 100 mls @ 1 mls/hr IV TITR S CH; Protocol Potassium Chloride/Dextrose/Sod Cl (D5w/0.45% Nacl/Kcl 20 Meq) 20 meq in 1,000 mls @ 125 mls/hr IV DIRECT TREVOR Insulin Human Regular 100 (units/ Sodium Chloride) 100 mls @ 1 mls/hr IV TITR TREVOR; Protocol Ceftriaxone Sodium (Rocephin/Ns 2 Gm/100 Ml) 2 gm in 100 mls @ 200 mls/hr IV Q2 4H TREVOR; Protocol Azithromycin (Zithromax/Ns) 500 mg in 250 mls @ 250 mls/hr IV Q24H TREVOR; Protocol Sodium Chloride (Sodium Chloride 0.9% 10 Ml Flush Syringe) 10 ml IV PRN PRN PRN Reason: LINE FLUSH Review of Systems Constitutional: fatigue, weakness, malaise Cardiovascular: shortness of breath Respiratory: shortness of breath Exam - Constitutional Vitals: Temp Pulse Resp BP Pulse Ox 97.3 F L 118 H 22 150/85 100 10/17/20 00:02 10/17/20 00:02 10/17/20 00:02 10/17/20 00:02 10/17/20 00:02 General appearance: Present: no acute distress, mild distress, well-nourished - EENT Eyes: Present: PERRL ENT: hearing intact, clear oral mucosa - Neck Neck: Present: supple, normal ROM - Respiratory Respiratory effort: normal Respiratory: bilateral: diminished - Cardiovascular Heart Sounds: Present: S1 & S2. Absent: rub, click - Extremities Extremities: pulses symmetrical, No edema Peripheral Pulses: within normal limits - Abdominal General gastrointestinal: Present: soft, non-tender, non-distended, normal bowel sounds Female genitourinary: Present: normal - Integumentary Integumentary: Present: clear, warm, dry - Musculoskeletal Musculoskeletal: gait normal, strength equal bilaterally - Psychiatric Psychiatric: appropriate mood/affect, intact judgment & insight - Neurologic Neurologic: CNII-XII intact, moves all extremities HEART Score - HEART Score Troponin: Troponin T < 0.010 ng/mL (0.00-0.029) 10/17/20 00:25 Results - Labs CBC & Chem 7: 10/17/20 00:25 10/17/20 00:25 Labs: Laboratory Last Values WBC 10.2 K/mm3 (4.5-11.0) 10/17/20 00:25 RBC 5.49 M/mm3 (3.65-5.03) H 10/17/20 00:25 Hgb 15.5 gm/dl (10.1-14.3) H 10/17/20 00:25 Hct 48.8 % (30.3-42.9) H 10/17/20 00:25 MCV 89 fl (79-97) 10/17/20 00:25 MCH 28 pg (28-32) 10/17/20 00:25 MCHC 32 % (30-34) 10/17/20 00:25 RDW 17.1 % (13.2-15.2) H 10/17/20 00:25 Plt Count 219 K/mm3 (140-440) 10/17/20 00:25 Lymph % (Auto) 7.2 % (13.4-35.0) L 10/17/20 00:25 [place] % (Auto) 3.8 % (0.0-7.3) 10/17/20 00:25 Eos % (Auto) 0.2 % (0.0-4.3) 10/17/20 00:25 Baso % (Auto) 0.7 % (0.0-1.8) 10/17/20 00:25 Lymph # (Auto) 0.7 K/mm3 (1.2-5.4) L 10/17/20 00:25 [place] # (Auto) 0.4 K/mm3 (0.0-0.8) 10/17/20 00:25 Eos # (Auto) 0.0 K/mm3 (0.0-0.4) 10/17/20 00:25 Baso # (Auto) 0.1 K/mm3 (0.0-0.1) 10/17/20 00:25 Seg Neutrophils % 88.1 % (40.0-70.0) H 10/17/20 00:25 Seg Neutrophils # 8.9 K/mm3 (1.8-7.7) H 10/17/20 00:25 PT 15.4 Sec. (12.2-14.9) H 10/17/20 01:34 INR 1.24 (0.87-1.13) H 10/17/20 01:34 D-Dimer 1017.46 ng/mlDDU (0-234) H 10/17/20 01:34 VBG pH 7.050 (7.320-7.420) L* 10/17/20 01:34 Sodium 124 mmol/L (137-145) L 10/17/20 00:25 Potassium 6.5 mmol/L (3.6-5.0) H* 10/17/20 00:25 Chloride 89.8 mmol/L (98-107) L 10/17/20 00:25 Carbon Dioxide 3 mmol/L (22-30) L* 10/17/20 00:25 Anion Gap 38 mmol/L 10/17/20 00:25 BUN 35 mg/dL (7-17) H 10/17/20 00:25 Creatinine 1.7 mg/dL (0.6-1.2) H 10/17/20 00:25 Estimated GFR 39 ml/min 10/17/20 00:25 BUN/Creatinine Ratio 21 % 10/17/20 00:25 Glucose 547 mg/dL (65-100) H* 10/17/20 00:25 POC Glucose 454 mg/dL (70-105) H 10/17/20 00:12 Lactic Acid 2.90 mmol/L (0.7-2.0) H* 10/17/20 01:34 Calcium 9.6 mg/dL (8.4-10.2) 10/17/20 00:25 Magnesium 2.50 mg/dL (1.7-2.3) H 10/17/20 01:34 Total Bilirubin 0.50 mg/dL (0.1-1.2) 10/17/20 00:25 AST 19 units/L (5-40) 10/17/20 00:25 ALT 9 units/L (7-56) 10/17/20 00:25 Alkaline Phosphatase 203 units/L (35-129) H 10/17/20 00:25 Total Creatine Kinase 168 units/L (30-135) H 10/17/20 01:34 Troponin T < 0.010 ng/mL (0.00-0.029) 10/17/20 00:25 NT-Pro-B Natriuret Pep 127.2 pg/mL (0-450) 10/17/20 00:25 Total Protein 8.9 g/dL (6.3-8.2) H 10/17/20 00:25 Albumin 4.6 g/dL (3.9-5) 10/17/20 00:25 Albumin/Globulin Ratio 1.1 % 10/17/20 00:25 Lipase 166 units/L (13-60) H 10/17/20 00:25 HCG, Quant < 2 mIU/mL (0-4) 10/17/20 01:34 - Imaging and Cardiology Chest x-ray: image reviewed Assessment and Plan - Patient Problems (1) Diabetic ketoacidosis Onset Date: 10/27/14 Current Visit: Yes Status: Acute Plan to address problem: Admit the patient to the [facility]. Put the patient on DKA pathway. Insulin drip as per protocol. IV fluid normal saline at the rate of 150 cc/h. We do the serial BMP. Diabetic education. recheck CBC BMP in the morning. We will put the patient on heparin 5000 units subcu every 8 hours for DVT prophylaxis and Pepcid 20 mg p.o. twice daily for GI prophylaxis. Patient is a full code (2) Hyperkalemia Current Visit: Yes Status: Acute Plan to address problem: Patient is on insulin drip. Kayexalate 30 g p.o. every 4 hours x2 dose. We also gave sodium bicarb and 1 g of calcium gluconate. We will do the serial BMP (3) Suspected 2019 novel coronavirus infection Current Visit: Yes Status: Acute Plan to address problem: Oxygen by nasal cannula 3 L/min. Rocephin 1 g IV daily. Zithromax 500 mg IV daily. We do the blood culture and sputum culture. Reconsult infectious disease for further evaluation and treatment. Recheck CBC BMP in the morning (4) SOB (shortness of breath) Current Visit: Yes Status: Acute Plan to address problem: Oxygen via nasal cannula 3 L/min. DuoNeb by nebulizer every 4 hours as needed. (5) Acute renal insufficiency Current Visit: Yes Status: Acute Plan to address problem: We will put the patient on IV fluid normal saline at the rate of 150 cc per protocol. We will recheck this BMP in the morning. Avoid nephrotoxic drugs.
[2020-10-17] MEDS ORDERED: CALCIUM GLUCONATE 1,000 MG in SODIUM CHLORIDE 0.9% 100 ML IV ONE (02:58)
[2020-10-17] MEDS ORDERED: SODIUM BICARB 8.4% 50 MEQ/50 ML SYRINGE IV ONE (02:58)
[2020-10-17] MEDS ORDERED: INSULIN REGULAR, HUMAN 100 UNITS in SODIUM CHLORIDE 0.9% 99 ML IV SCH (03:00)
[2020-10-17 03:21] LABS: C-Reactive Protein 1.2 mg/dL (0.00-1.30)
[2020-10-17] MEDS: cefTRIAXone/NS 2 GM/100 ML 2 GM/100 ML BAG IV SCH (03:43)
[2020-10-17] MEDS: SODIUM POLYSTYRENE 15 GM/60 ML ORAL LIQD PO SCH ×2 (03:45→08:35)
[2020-10-17] MEDS: INSULIN REGULAR, HUMAN 100 UNITS in SODIUM CHLORIDE 0.9% 99 ML IV SCH (04:15)
[2020-10-17] MEDS ORDERED: SODIUM CHLORIDE 0.9% 1000 ML 1,000 ML ONE (04:50)
[2020-10-17] MEDS: HEPARIN 5,000 UNIT/1 ML VIAL SUB-Q SCH ×3 (06:48→23:06)
[2020-10-17 07:05] LABS: Calcium 9.1 mg/dL (8.4-10.2)
[2020-10-17 09:06] LABS: Calcium 8.9 mg/dL (8.4-10.2)
--- NOTE | 2020-10-17 10:36 | Event Note ---
Date: 10/17/20 Patient is admitted for DKA and PUI. Continue management according to DKA protocol as outlined in the HPI. D-dimer is elevated and I will order perfusion scan and Doppler ultrasound of the lower extremities.
[2020-10-17] MEDS: AZITHROMYCIN/NS 500 MG/250 ML 500 MG/250 ML BAG IV SCH (10:45)
[2020-10-17] MEDS: FAMOTIDINE 20 MG TAB PO SCH ×2 (10:45→23:06)
[2020-10-17] MEDS: amLODIPine 5 MG TAB PO SCH (10:45)
--- NOTE | 2020-10-17 11:56 | Consultation ---
History of Present Illness - Reason for Consult Consult date: 10/17/20 DKA - History of Present Illness 50 y/o female with known Diabetes admitted with DKA. Currently on INsulin dirp but Anion Gap has not closed yet. Also short of breath and has been placed on precautions for COVID 19. Past History Past Medical History: diabetes, hypertension Medications and Allergies Allergies Allergy/AdvReac Type Severity Reaction Status Date / Time Penicillins Allergy Unknown Verified 10/19/14 21:41 Home Medications Medication Instructions Recorded Confirmed Last Taken Type Insulin NPH, Human [NovoLIN N] 40 unit SUB-Q BIDDIAB #2 vial 02/20/18 Unknown Rx Insulin Regular, Human [Humulin R] See Protocol SUB-Q DAILY #1 vial 02/20/18 Unknown Rx amLODIPine 5 mg PO DAILY #30 tablet 02/20/18 Unknown Rx Active Meds: Active Medications Amlodipine Besylate (Amlodipine 5 Mg Tab) 5 mg PO DAILY TREVOR Last Admin: 10/17/20 10:45 Dose: 5 mg Documented by: Dextrose (Dextrose 50% In Water (25gm) 50 Ml Syringe) 0 ml IV Q30MIN PRN; Protocol PRN Reason: Hypoglycemia Famotidine (Famotidine 20 Mg Tab) 20 mg PO BID TREVOR Last Admin: 10/17/20 10:45 Dose: 20 mg Documented by: Heparin Sodium (Porcine) (Heparin 5,000 Unit/1 Ml Vial) 5,000 unit SUB-Q Q8HR TREVOR Last Admin: 10/17/20 06:48 Dose: 5,000 unit Documented by: Potassium Chloride/Dextrose/Sod Cl (D5w/0.45% Nacl/Kcl 20 Meq) 20 meq in 1,000 mls @ 125 mls/hr IV DIRECT TREVOR Insulin Human Regular 100 (units/ Sodium Chloride) 100 mls @ 1 mls/hr IV TITR TREVOR; Protocol Last Titration: 10/17/20 10:59 Dose: 4 units/hr, 4 mls/hr Documented by: Ceftriaxone Sodium (Rocephin/Ns 2 Gm/100 Ml) 2 gm in 100 mls @ 200 mls/hr IV Q24H TREVOR; Protocol Last Admin: 10/17/20 03:43 Dose: 200 mls/hr Documented by: Azithromycin (Zithromax/Ns) 500 mg in 250 mls @ 250 mls/hr IV Q24H TREVOR; Pro tocol Last Admin: 10/17/20 10:45 Dose: 250 mls/hr Documented by: Sodium Chloride (Sodium Chloride 0.9% 10 Ml Flush Syringe) 10 ml IV PRN PRN PRN Reason: LINE FLUSH Exam - Constitutional Vitals: Temp Pulse Resp BP Pulse Ox 97.8 F 99 H 20 151/76 100 10/17/20 03:30 10/17/20 06:00 10/17/20 06:00 10/17/20 06:00 10/17/20 06:00 Results - Labs CBC & Chem 7: 10/17/20 00:25 10/17/20 08:39 Labs: Abnormal lab results 10/17/20 10/17/20 10/17/20 Range/Units 00:12 00:25 00:25 RBC 5.49 H (3.65-5.03) M/mm3 Hgb 15.5 H (10.1-14.3) gm/dl Hct 48.8 H (30.3-42.9) % RDW 17.1 H (13.2-15.2) % Lymph % (Auto) 7.2 L (13.4-35.0) % Lymph # (Auto) 0.7 L (1.2-5.4) K/mm3 Seg Neutrophils % 88.1 H (40.0-70.0) % Seg Neutrophils # 8.9 H (1.8-7.7) K/mm3 PT (12.2-14.9) Sec. INR (0.87-1.13) D-Dimer (0-234) ng/mlDDU VBG pH (7.320-7.420) Sodium 124 L (137-145) mmol/L Potassium 6.5 H* (3.6-5.0) mmol/L Chloride 89.8 L (98-107) mmol/L Carbon Dioxide 3 L* (22-30) mmol/L BUN 35 H (7-17) mg/dL Creatinine 1.7 H (0.6-1.2) mg/dL Glucose 547 H* (65-100) mg/dL POC Glucose 454 H (70-105) mg/dL Lactic Acid (0.7-2.0) mmol/L Phosphorus (2.5-4.5) mg/dL Magnesium (1.7-2.3) mg/dL Alkaline Phosphatase 203 H (35-129) units/L Lactate Dehydrogenase (91-180) units/L Total Creatine Kinase (30-135) units/L Total Protein 8.9 H (6.3-8.2) g/dL Lipase 166 H (13-60) units/L 10/17/20 10/17/20 10/17/20 Range/Units 01:34 01:34 01:34 RBC (3.65-5.03) M/mm3 Hgb (10.1-14.3) gm/dl Hct (30.3-42.9) % RDW (13.2-15.2) % Lymph % (Auto) (13.4-35.0) % Lymph # (Auto) (1.2-5.4) K/mm3 Seg Neutrophils % (40.0-70.0) % Seg Neutrophils # (1.8-7.7) K/mm3 PT 15.4 H (12.2-14.9) Sec. INR 1.24 H (0.87-1.13) D-Dimer 1017.46 H (0-234) ng/mlDDU VBG pH 7.050 L* (7.320-7.420) Sodium (137-145) mmol/L Potassium (3.6-5.0) mmol/L Chloride (98-107) mmol/L Carbon Dioxide (22-30) mmol/L BUN (7-17) mg/dL Creatinine (0.6-1.2) mg/dL Glucose (65-100) mg/dL POC Glucose (70-105) mg/dL Lactic Acid (0.7-2.0) mmol/L Phosphorus (2.5-4.5) mg/dL Magnesium 2.50 H (1.7-2.3) mg/dL Alkaline Phosphatase (35-129) units/L Lactate Dehydrogenase (91-180) units/L Total Creatine Kinase 168 H (30-135) units/L Total Protein (6.3-8.2) g/dL Lipase (13-60) units/L 10/17/20 10/17/20 10/17/20 Range/Units 01:34 01:34 05:20 RBC (3.65-5.03) M/mm3 Hgb (10.1-14.3) gm/dl Hct (30.3-42.9) % RDW (13.2-15.2) % Lymph % (Auto) (13.4-35.0) % Lymph # (Auto) (1.2-5.4) K/mm3 Seg Neutrophils % (40.0-70.0) % Seg Neutrophils # (1.8-7.7) K/mm3 PT (12.2-14.9) Sec. INR (0.87-1.13) D-Dimer (0-234) ng/mlDDU VBG pH (7.320-7.420) Sodium (137-145) mmol/L Potassium (3.6-5.0) mmol/L Chloride (98-107) mmol/L Carbon Dioxide (22-30) mmol/L BUN (7-17) mg/dL Creatinine (0.6-1.2) mg/dL Glucose 533 H* (65-100) mg/dL POC Glucose 428 H (70-105) mg/dL Lactic Acid 2.90 H* (0.7-2.0) mmol/L Phosphorus (2.5-4.5) mg/dL Magnesium (1.7-2.3) mg/dL Alkaline Phosphatase (35-129) units/L Lactate Dehydrogenase 258 H (91-180) units/L Total Creatine Kinase (30-135) units/L Total Protein (6.3-8.2) g/dL Lipase (13-60) units/L 10/17/20 10/17/20 10/17/20 Range/Units 06:32 06:42 06:42 RBC (3.65-5.03) M/mm3 Hgb (10.1-14.3) gm/dl Hct (30.3-42.9) % RDW (13.2-15.2) % Lymph % (Auto) (13.4-35.0) % Lymph # (Auto) (1.2-5.4) K/mm3 Seg Neutrophils % (40.0-70.0) % Seg Neutrophils # (1.8-7.7) K/mm3 PT (12.2-14.9) Sec. INR (0.87-1.13) D-Dimer (0-234) ng/mlDDU VBG pH (7.320-7.420) Sodium (137-145) mmol/L Potassium (3.6-5.0) mmol/L Chloride (98-107) mmol/L Carbon Dioxide (22-30) mmol/L BUN (7-17) mg/dL Creatinine (0.6-1.2) mg/dL Glucose (65-100) mg/dL POC Glucose 359 H (70-105) mg/dL Lactic Acid 2.30 H* (0.7-2.0) mmol/L Phosphorus 1.80 L (2.5-4.5) mg/dL Magnesium (1.7-2.3) mg/dL Alkaline Phosphatase (35-129) units/L Lactate Dehydrogenase (91-180) units/L Total Creatine Kinase (30-135) units/L Total Protein (6.3-8.2) g/dL Lipase (13-60) units/L 10/17/20 10/17/20 10/17/20 Range/Units 06:42 08:39 08:39 RBC (3.65-5.03) M/mm3 Hgb (10.1-14.3) gm/dl Hct (30.3-42.9) % RDW (13.2-15.2) % Lymph % (Auto) (13.4-35.0) % Lymph # (Auto) (1.2-5.4) K/mm3 Seg Neutrophils % (40.0-70.0) % Seg Neutrophils # (1.8-7.7) K/mm3 PT (12.2-14.9) Sec. INR (0.87-1.13) D-Dimer (0-234) ng/mlDDU VBG pH (7.320-7.420) Sodium 132 L D 136 L (137-145) mmol/L Potassium (3.6-5.0) mmol/L Chloride (98-107) mmol/L Carbon Dioxide 7 L* 12 L (22-30) mmol/L BUN 35 H 32 H (7-17) mg/dL Creatinine 1.4 H 1.5 H (0.6-1.2) mg/dL Glucose 354 H 258 H (65-100) mg/dL POC Glucose (70-105) mg/dL Lactic Acid 2.10 H* (0.7-2.0) mmol/L Phosphorus (2.5-4.5) mg/dL Magnesium (1.7-2.3) mg/dL Alkaline Phosphatase (35-129) units/L Lactate Dehydrogenase (91-180) units/L Total Creatine Kinase (30-135) units/L Total Protein (6.3-8.2) g/dL Lipase (13-60) units/L - Imaging and Cardiology Chest x-ray: image reviewed (clear bilaterally, no evidence of acute disease) Assessment and Plan 50 y/o female with DKA and shortness of breath. 1. NPO 2. Insulin drip 3. Serial Chemistries every 6 hours until anion Gap closes 4. Monitor potassium and blood sugar, may need to switch fluids soon 5. Agree with COVID rule out, although CXR is clear and room air sats appear stable 6. Would not start steroids now in the face of DKA until confirmed COVID. 7. Check Procalcitonin, would consider stopping abx.
[2020-10-17] MEDS: D5W/0.45% NACL/KCL 20 MEQ 20 MEQ/1,000 ML BAG IV SCH (12:06)
[2020-10-17 18:51] LABS: Calcium 9.1 mg/dL (8.4-10.2)
[2020-10-18 03:01] LABS: Calcium 9.1 mg/dL (8.4-10.2)
[2020-10-18] MEDS: cefTRIAXone/NS 2 GM/100 ML 2 GM/100 ML BAG IV SCH (03:11)
[2020-10-18] MEDS: AZITHROMYCIN/NS 500 MG/250 ML 500 MG/250 ML BAG IV SCH (04:05)
[2020-10-18 05:45] LABS: Basophils # (Auto) 0.1 K/mm3 (0.0-0.1); Basophils % (Auto) 1.2 % (0.0-1.8); Eosinophils % (Auto) 0.1 % (0.0-4.3); Hematocrit 38.7 % (30.3-42.9); Hemoglobin 13.1 gm/dl (10.1-14.3); Lymphocytes # (Auto) 1.3 K/mm3 (1.2-5.4); Lymphocytes % (Auto) 15.7 % (13.4-35.0); Mean Corpuscular HGB Conc 34 % (30-34); Mean Corpuscular Volume 84 fl (79-97); Monocytes # (Auto) 0.6 K/mm3 (0.0-0.8); Platelet Count 163 K/mm3 (140-440); Red Blood Count 4.62 M/mm3 (3.65-5.03); Red Cell Distribution Width 15.9 % (13.2-15.2)
[2020-10-18] MEDS: HEPARIN 5,000 UNIT/1 ML VIAL SUB-Q SCH (06:35)
[2020-10-18] MEDS ORDERED: POTASSIUM CHLORIDE ER 20 MEQ TAB PO PRN (06:47)
[2020-10-18] MEDS: INSULIN REGULAR, HUMAN 100 UNITS in SODIUM CHLORIDE 0.9% 99 ML IV SCH (07:00)
--- NOTE | 2020-10-18 08:19 | Progress Note ---
Assessment and Plan 50 y/o female with DKA and shortness of breath. 10/18/20: Suggest feeding patient. Suggest calculation of insulin requirements, administer first dose and then stop insulin drip. Needs potassium replaced. COVID is negative. Doubt VTE but await V/Q scan results. Pulm status appears stable, will sign off. 1. NPO 2. Insulin drip 3. Serial Chemistries every 6 hours until anion Gap closes 4. Monitor potassium and blood sugar, may need to switch fluids soon 5. Agree with COVID rule out, although CXR is clear and room air sats appear stable 6. Would not start steroids now in the face of DKA until confirmed COVID. 7. Check Procalcitonin, would consider stopping abx. Subjective Date of service: 10/18/20 Interval history: No acute events. Anion Gap has closed. Had a V/Q scan that has not been read yet. Objective - Labs CBC & Chem 7: 10/18/20 05:21 10/18/20 05:21 Labs: Abnormal lab results 10/17/20 10/17/20 10/17/20 Range/Units 07:55 08:39 08:39 RDW (13.2-15.2) % Hart % (Auto) (0.0-7.3) % Seg Neutrophils % (40.0-70.0) % Sodium 136 L (137-145) mmol/L Potassium (3.6-5.0) mmol/L Chloride (98-107) mmol/L Carbon Dioxide 12 L (22-30) mmol/L BUN 32 H (7-17) mg/dL Creatinine 1.5 H (0.6-1.2) mg/dL Glucose 258 H (65-100) mg/dL POC Glucose 250 H (70-105) mg/dL Lactic Acid 2.10 H* (0.7-2.0) mmol/L 10/17/20 10/17/20 10/17/20 Range/Units 09:23 10:39 11:17 RDW (13.2-15.2) % Hart % (Auto) (0.0-7.3) % Seg Neutrophils % (40.0-70.0) % Sodium (137-145) mmol/L Potassium (3.6-5.0) mmol/L Chloride (98-107) mmol/L Carbon Dioxide 10 L (22-30) mmol/L BUN 34 H (7-17) mg/dL Creatinine 1.3 H (0.6-1.2) mg/dL Glucose 249 H (65-100) mg/dL POC Glucose 230 H 235 H (70-105) mg/dL Lactic Acid (0.7-2.0) mmol/L 10/17/20 10/17/20 10/17/20 Range/Units 11:52 13:04 14:11 RDW (13.2-15.2) % Hart % (Auto) (0.0-7.3) % Seg Neutrophils % (40.0-70.0) % Sodium (137-145) mmol/L Potassium (3.6-5.0) mmol/L Chloride (98-107) mmol/L Carbon Dioxide (22-30) mmol/L BUN (7-17) mg/dL Creatinine (0.6-1.2) mg/dL Glucose (65-100) mg/dL POC Glucose 233 H 217 H 243 H (70-105) mg/dL Lactic Acid (0.7-2.0) mmol/L 10/17/20 10/17/20 10/17/20 Range/Units 15:09 16:09 17:12 RDW (13.2-15.2) % [place] % (Auto) (0.0-7.3) % Seg Neutrophils % (40.0-70.0) % Sodium (137-145) mmol/L Potassium (3.6-5.0) mmol/L Chloride (98-107) mmol/L Carbon Dioxide (22-30) mmol/L BUN (7-17) mg/dL Creatinine (0.6-1.2) mg/dL Glucose (65-100) mg/dL POC Glucose 183 H 182 H 158 H (70-105) mg/dL Lactic Acid (0.7-2.0) mmol/L 10/17/20 10/17/20 10/17/20 Range/Units 17:59 18:22 19:45 RDW (13.2-15.2) % [place] % (Auto) (0.0-7.3) % Seg Neutrophils % (40.0-70.0) % Sodium (137-145) mmol/L Potassium 3.2 L D (3.6-5.0) mmol/L Chloride 109.1 H (98-107) mmol/L Carbon Dioxide 12 L (22-30) mmol/L BUN 35 H (7-17) mg/dL Creatinine (0.6-1.2) mg/dL Glucose 160 H (65-100) mg/dL POC Glucose 145 H 148 H (70-105) mg/dL Lactic Acid (0.7-2.0) mmol/L 10/17/20 10/17/20 10/18/20 Range/Units 21:23 23:04 01:00 RDW (13.2-15.2) % Hart % (Auto) (0.0-7.3) % Seg Neutrophils % (40.0-70.0) % Sodium (137-145) mmol/L Potassium (3.6-5.0) mmol/L Chloride (98-107) mmol/L Carbon Dioxide (22-30) mmol/L BUN (7-17) mg/dL Creatinine (0.6-1.2) mg/dL Glucose (65-100) mg/dL POC Glucose 150 H 133 H 127 H (70-105) mg/dL Lactic Acid (0.7-2.0) mmol/L 10/18/20 10/18/20 10/18/20 Range/Units : 03:06 05:21 RDW (13.2-15.2) % Hart % (Auto) (0.0-7.3) % Seg Neutrophils % (40.0-70.0) % Sodium (137-145) mmol/L Potassium 3.1 L 2.8 L* (3.6-5.0) mmol/L Chloride 107.5 H 108.3 H (98-107) mmol/L Carbon Dioxide 16 L 17 L (22-30) mmol/L BUN 36 H 35 H (7-17) mg/dL Creatinine (0.6-1.2) mg/dL Glucose 151 H 129 H (65-100) mg/dL POC Glucose 150 H (70-105) mg/dL Lactic Acid (0.7-2.0) mmol/L 10/18/20 Range/Units 05:21 RDW 15.9 H (13.2-15.2) % Hart % (Auto) 8.0 H (0.0-7.3) % Seg Neutrophils % 75.0 H (40.0-70.0) % Sodium (137-145) mmol/L Potassium (3.6-5.0) mmol/L Chloride (98-107) mmol/L Carbon Dioxide (22-30) mmol/L BUN (7-17) mg/dL Creatinine (0.6-1.2) mg/dL Glucose (65-100) mg/dL POC Glucose (70-105) mg/dL Lactic Acid (0.7-2.0) mmol/L Medications & Allergies - Medications Allergies/Adverse Reactions: Allergies Penicillins Allergy (Verified 10/19/14 21:41) Unknown Home Medications: Home Medications Medication Instructions Recorded Confirmed Last Taken Type Insulin NPH, Human [NovoLIN N] 40 unit SUB-Q BIDDIAB #2 vial 02/20/18 Unknown Rx Insulin Regular, Human [Humulin R] See Protocol SUB-Q DAILY #1 vial 02/20/18 Unknown Rx amLODIPine 5 mg PO DAILY #30 tablet 02/20/18 Unknown Rx Active Medications: Generic Name Dose Route Start Last Admin Trade Name Freq PRN Reason Stop Dose Admin Amlodipine Besylate 5 mg 10/17/20 10:00 10/17/20 10:45 Amlodipine 5 Mg Tab PO 5 mg DAILY TREVOR Administration Dextrose 0 ml 10/17/20 02:29 Dextrose 50% In Water (25gm) 50 Ml Syringe IV Q30MIN PRN Hypoglycemia Protocol Famotidine 20 mg 10/17/20 10:00 10/17/20 23:06 Famotidine 20 Mg Tab PO 20 mg BID TREVOR Administration Heparin Sodium (Porcine) 5,000 unit 10/17/20 06:00 10/18/20 06:35 Heparin 5,000 Unit/1 Ml Vial SUB-Q 5,000 unit Q8HR TREVOR Administration Potassium Chloride/Dextrose/Sod Cl 20 meq in 1,000 mls @ 125 mls/hr 10/17/20 03:00 10/17/20 12:06 D5w/0.45% Nacl/Kcl 20 Meq IV 125 mls/hr DIRECT TREVOR Administration Insulin Human Regular 100 100 mls @ 1 mls/hr 10/17/20 03:00 10/18/20 07:00 units/ Sodium Chloride IV 0.5 units/hr TITR TREVOR 0.5 mls/hr Administration Protocol 1 UNITS/HR Ceftriaxone Sodium 2 gm in 100 mls @ 200 mls/hr 10/17/20 03:00 10/18/20 03:11 Rocephin/Ns 2 Gm/100 Ml IV 10/21/20 03:29 200 mls/hr Q24H TREVOR Administration Protocol Azithromycin 500 mg in 250 mls @ 250 mls/hr 10/17/20 03:00 10/18/20 04:05 Zithromax/Ns IV 10/21/20 03:59 250 mls/hr Q24H TREVOR Administration Protocol Potassium Chloride 10 meq in 100 mls @ 100 mls/hr 10/18/20 08:00 Kcl 10meq/100ml IV 10/18/20 11:59 Q1H TREVOR Potassium Chloride 10 meq in 100 mls @ 100 mls/hr 10/18/20 13:00 Kcl 10meq/100ml IV 10/18/20 16:59 Q1H TREVOR Potassium Chloride 40 meq 10/18/20 06:47 Potassium Chloride Er 20 Meq Tab PO Q8HR PRN Hypokalemia Sodium Chloride 10 ml 10/17/20 03:00 Sodium Chloride 0.9% 10 Ml Flush Syringe IV PRN PRN LINE FLUSH HEART Score - HEART Score Troponin: Troponin T < 0.010 ng/mL (0.00-0.029) 10/17/20 00:25
--- NOTE | 2020-10-18 08:26 | Nuclear Medicine Report ---
NUCLEAR MEDICINE PERFUSION SCAN INDICATION: PUI, elevated D-dimer. Shortness of breath. Evaluate for pulmonary embolus. CORRELATION: Chest x-ray dated 10/17/2020 RADIOPHARMACEUTICAL: Perfusion: 5.3 mCi Tc-99m MAA given IV FINDINGS: Perfusion images show symmetric and uniform radiotracer distribution throughout bilateral lung zones with no evidence of unmatched segmental perfusion defects. Normal cardiac silhouette. IMPRESSION: Very low probability perfusion scan for pulmonary embolism. Signer Name: Jamie Mcfarland Jr, MD Signed: 10/18/2020 8:22 AM Workstation Name: [id number]
--- NOTE | 2020-10-18 09:01 | Vascular Lab Report ---
DUPLEX DOPPLER LOWER EXTREMITY VEINS, BILATERAL INDICATION: Elevated D-dimer, PUI. TECHNIQUE: Duplex doppler imaging was performed through the veins of both lower extremities using ve nous compression and other maneuvers. COMPARISON: No relevant prior imaging study available. FINDINGS: Right Common femoral vein: Negative. Right Superficial femoral vein: Negative. Right Popliteal vein: Negative. Right Calf veins: Negative. Left Common femoral vein: Negative. Left Superficial femoral vein: Negative. Left Popliteal vein: There is acute appearing occlusive or near occlusive thrombus throughout the lef t popliteal vein. Left Calf veins: Negative. Additional findings: None. IMPRESSION: Positive for DVT in the left popliteal vein as described. The patient's nurse, Liliya, was informed of these findings at 0838 hours by the technologist. Signer Name: Jamie Mcfarland Jr, MD Signed: 10/18/2020 8:57 AM Workstation Name: [id number]
[2020-10-18] MEDS: FAMOTIDINE 20 MG TAB PO SCH ×2 (09:41→22:20)
[2020-10-18] MEDS: amLODIPine 5 MG TAB PO SCH (09:41)
[2020-10-18] MEDS: POTASSIUM CHLORIDE 10 MEQ 10 MEQ/100 ML BAG IV SCH ×8 (09:41→17:22)
[2020-10-18] MEDS: ENOXAPARIN 100 MG/1 ML INJ SUB-Q SCH ×2 (09:43→22:19)
[2020-10-18] MEDS ORDERED: INSULIN GLARGINE 100 UNITS/ML SUB-Q ONE (10:00)
[2020-10-18 11:24] LABS: BUN/Creatinine Ratio 25; Blood Urea Nitrogen 33 mg/dL (7-17); Calcium 9.3 mg/dL (8.4-10.2); Hemolysis Index 90
[2020-10-18] MEDS: INSULIN LISPRO 100 UNIT/ML SUB-Q SCH ×3 (11:25→22:26)
--- NOTE | 2020-10-18 11:58 | Consultation ---
History of Present Illness - Reason for Consult Consult date: 10/18/20 COVID PUI Requesting physician: JOHN MICHAEL - History of Present Illness The patient is a 50-year-old female with diabetes, hypertension brought into the emergency room with shortness of breath and fatigue. Upon evaluation in the ER, she was noted to have hyperglycemia, lactic acidosis, elevated creatinine. Due to DKA, she was put on aggressive hydration and insulin drip. ID consulted to evaluate for COVID-19. VQ scan negative for PE. Chest x-ray does not reveal any evidence of pneumonia. Review of Systems: reviewed in the chart, unable to obtain, minimize risk of transmission Past History Past Medical History: diabetes, hypertension Medications and Allergies Allergies Allergy/AdvReac Type Severity Reaction Status Date / Time Penicillins Allergy Unknown Verified 10/19/14 21:41 Home Medications Medication Instructions Recorded Confirmed Last Taken Type Insulin NPH, Human [NovoLIN N] 40 unit SUB-Q BIDDIAB #2 vial 02/20/18 Unknown Rx Insulin Regular, Human [Humulin R] See Protocol SUB-Q DAILY #1 vial 02/20/18 Unknown Rx amLODIPine 5 mg PO DAILY #30 tablet 02/20/18 Unknown Rx Active Meds: Active Medications Amlodipine Besylate (Amlodipine 5 Mg Tab) 5 mg PO DAILY TREVOR Last Admin: 10/18/20 09:41 Dose: 5 mg Documented by: Dextrose (Dextrose 50% In Water (25gm) 50 Ml Syringe) 0 ml IV Q30MIN PRN; Protocol PRN Reason: Hypoglycemia Enoxaparin Sodium (Enoxaparin 100 Mg/1 Ml Inj) 100 mg 1 mg/kg (100 mg) SUB-Q Q12HR TREVOR; Protocol Last Admin: 10/18/20 09:43 Dose: 100 mg Documented by: Famotidine (Famotidine 20 Mg Tab) 20 mg PO BID TREVOR Last Admin: 10/18/20 09:41 Dose: 20 mg Documented by: Potassium Chloride/Dextrose/Sod Cl (D5w/0.45% Nacl/Kcl 20 Meq) 20 meq in 1,000 mls @ 125 mls/hr IV DIRECT TREVOR Last Admin: 10/17/20 12:06 Dose: 125 mls/hr Documented by: Insulin Human Regular 100 (units/ Sodium Chloride) 100 mls @ 1 mls/hr IV TITR TREVOR; Protocol Last Titration: 10/18/20 11:35 Dose: 4 units/hr, 4 mls/hr Documented by: Ceftriaxone Sodium (Rocephin/Ns 2 Gm/100 Ml) 2 gm in 100 mls @ 200 mls/hr IV Q24H TREVOR; Protocol Stop: 10/21/20 03:29 Last Admin: 10/18/20 03:11 Dose: 200 mls/hr Documented by: Azithromycin (Zithromax/Ns) 500 mg in 250 mls @ 250 mls/hr IV Q24H TREVOR; Protocol Stop: 10/21/20 03:59 Last Admin: 10/18/20 04:05 Dose: 250 mls/hr Documented by: Potassium Chloride (Kcl 10meq/100ml) 10 meq in 100 mls @ 100 mls/hr IV Q1H [facility] Stop: 10/18/20 11:59 Last Admin: 10/18/20 11:03 Dose: 100 mls/hr Documented by: Potassium Chloride (Kcl 10meq/100ml) 10 meq in 100 mls @ 100 mls/hr IV Q1H [facility] Stop: 10/18/20 16:59 Insulin Glargine (Insulin Glargine 100 Units/Ml) 10 units SUB-Q QHS TREVOR Insulin Human Lispro (Insulin Lispro 100 Unit/Ml) 0 unit SUB-Q ACHS [facility]; Protocol Last Admin: 10/18/20 11:25 Dose: Not Given Documented by: Potassium Chloride (Potassium Chloride Er 20 Meq Tab) 40 meq PO Q8HR PRN PRN Reason: Hypokalemia Sodium Chloride (Sodium Chloride 0.9% 10 Ml Flush Syringe) 10 ml IV PRN PRN PRN Reason: LINE FLUSH Physical Examination - Physical Exam Narrative exam: Physical Exam (reviewed in chart to minimize risk of transmission) Constitutional: deferred Head, Ears, Nose: deferred Eyes: deferred Neck: deferred Oral: deferred Cardiovascular: deferred Respiratory: deferred GI: deferred Musculoskeletal: deferred Skin: deferred Hem/Lymphatic: deferred Psych: deferred Neurological: deferred - Constitutional Vitals: Vital Signs Temp Pulse Resp BP Pulse Ox 97.8 F 97 H 19 139/80 100 10/17/20 03:30 10/18/20 09:41 10/18/20 07:45 10/18/20 09:41 10/18/20 07:45 Results - Labs CBC & Chem 7: 10/18/20 05:21 10/18/20 10:30 Labs: Abnormal lab results 10/17/20 10/17/20 10/17/20 Range/Units 07:55 09:23 10:39 RDW (13.2-15.2) % Sumner % (Auto) (0.0-7.3) % Seg Neutrophils % (40.0-70.0) % Potassium (3.6-5.0) mmol/L Chloride (98-107) mmol/L Carbon Dioxide (22-30) mmol/L BUN (7-17) mg/dL Creatinine (0.6-1.2) mg/dL Glucose (65-100) mg/dL POC Glucose 250 H 230 H 235 H (70-105) mg/dL 10/17/20 10/17/20 10/17/20 Range/Units 11:17 11:52 13:04 RDW (13.2-15.2) % Sumner % (Auto) (0.0-7.3) % Seg Neutrophils % (40.0-70.0) % Potassium (3.6-5.0) mmol/L Chloride (98-107) mmol/L Carbon Dioxide 10 L (22-30) mmol/L BUN 34 H (7-17) mg/dL Creatinine 1.3 H (0.6-1.2) mg/dL Glucose 249 H (65-100) mg/dL POC Glucose 233 H 217 H (70-105) mg/dL 10/17/20 10/17/20 10/17/20 Range/Units 14:11 15:09 16:09 RDW (13.2-15.2) % Sumner % (Auto) (0.0-7.3) % Seg Neutrophils % (40.0-70.0) % Potassium (3.6-5.0) mmol/L Chloride (98-107) mmol/L Carbon Dioxide (22-30) mmol/L BUN (7-17) mg/dL Creatinine (0.6-1.2) mg/dL Glucose (65-100) mg/dL POC Glucose 243 H 183 H 182 H (70-105) mg/dL 10/17/20 10/17/20 10/17/20 Range/Units 17:12 17:59 18:22 RDW (13.2-15.2) % Sumner % (Auto) (0.0-7.3) % Seg Neutrophils % (40.0-70.0) % Potassium 3.2 L D (3.6-5.0) mmol/L Chloride 109.1 H (98-107) mmol/L Carbon Dioxide 12 L (22-30) mmol/L BUN 35 H (7-17) mg/dL Creatinine (0.6-1.2) mg/dL Glucose 160 H (65-100) mg/dL POC Glucose 158 H 145 H (70-105) mg/dL 10/17/20 10/17/20 10/17/20 Range/Units 19:45 21:23 23:04 RDW (13.2-15.2) % Sumner % (Auto) (0.0-7.3) % Seg Neutrophils % (40.0-70.0) % Potassium (3.6-5.0) mmol/L Chloride (98-107) mmol/L Carbon Dioxide (22-30) mmol/L BUN (7-17) mg/dL Creatinine (0.6-1.2) mg/dL Glucose (65-100) mg/dL POC Glucose 148 H 150 H 133 H (70-105) mg/dL 10/18/20 10/18/20 10/18/20 Range/Units 01:00 02:31 03:06 RDW (13.2-15.2) % Sumner % (Auto) (0.0-7.3) % Seg Neutrophils % (40.0-70.0) % Potassium 3.1 L (3.6-5.0) mmol/L Chloride 107.5 H (98-107) mmol/L Carbon Dioxide 16 L (22-30) mmol/L BUN 36 H (7-17) mg/dL Creatinine (0.6-1.2) mg/dL Glucose 151 H (65-100) mg/dL POC Glucose 127 H 150 H (70-105) mg/dL 10/18/20 10/18/20 10/18/20 Range/Units 05:21 05:21 06:19 RDW 15.9 H (13.2-15.2) % Sumner % (Auto) 8.0 H (0.0-7.3) % Seg Neutrophils % 75.0 H (40.0-70.0) % Potassium 2.8 L* (3.6-5.0) mmol/L Chloride 108.3 H (98-107) mmol/L Carbon Dioxide 17 L (22-30) mmol/L BUN 35 H (7-17) mg/dL Creatinine (0.6-1.2) mg/dL Glucose 129 H (65-100) mg/dL POC Glucose 125 H (70-105) mg/dL 10/18/20 10/18/20 10/18/20 Range/Units 07:46 09:13 10:26 RDW (13.2-15.2) % Sumner % (Auto) (0.0-7.3) % Seg Neutrophils % (40.0-70.0) % Potassium (3.6-5.0) mmol/L Chloride (98-107) mmol/L Carbon Dioxide (22-30) mmol/L BUN (7-17) mg/dL Creatinine (0.6-1.2) mg/dL Glucose (65-100) mg/dL POC Glucose 123 H 177 H 211 H (70-105) mg/dL 10/18/20 10/18/20 Range/Units 10:30 11:34 RDW (13.2-15.2) % Sumner % (Auto) (0.0-7.3) % Seg Neutrophils % (40.0-70.0) % Potassium (3.6-5.0) mmol/L Chloride (98-107) mmol/L Carbon Dioxide 15 L (22-30) mmol/L BUN 33 H (7-17) mg/dL Creatinine 1.3 H (0.6-1.2) mg/dL Glucose 203 H (65-100) mg/dL POC Glucose 151 H (70-105) mg/dL - Imaging and Cardiology Chest x-ray: report reviewed, image reviewed (no pneumonia) Assessment and Plan Cultures: SARS CoV2 PCR: Negative 10/17/2020 blood culture: No growth A/P: 50-year-old female with diabetes, hypertension brought into the emergency room with shortness of breath and fatigue: #Diabetic ketoacidosis #GIOVANI #No fever, no leukocytosis, chest x-ray without evidence of pneumonia. Recs: Antibiotics and steroids discontinued COVID-19 is negative, in the setting of DKA, avoid any steroids We will sign off. Please call with questions. Mika Viveros MD, FACP [facility] ([facility] O: [phone] F: [phone]
--- NOTE | 2020-10-18 13:25 | Progress Note ---
Assessment and Plan Assessment and plan: 50-year-old female with history of diabetes and hypertension was brought to the emergency room because of shortness of breath, legs, fatigue and weakness for last few days. Patient complaint shortness of breath, no loss of taste or smell. No fever. Positive nausea. No dysuria. No diarrhea. Positive body aches. Reports compliance with medications. Denies known Covid exposure. In the emergency room patient is found to have blood glucose of 547, potassium of 6.5 BUN 35 creatinine 1.7 and lactic acid 2.90. Patient is found to have DKA Hospital course Patient started on DKA protocol and admitted to the [facility]. 10/18/2020. Patient blood glucose in the 130s. Still on IV insulin. Anion gap i s closed so we will start on Lantus and sliding scale if patient able to tolerate diet. Okay to transfer to medical floors. Problems DKA- Off insulin drip Started on Lantus and sliding scale Monitor glucose closely Needs to follow-up with PCP and data entry processor for blood glucose monitoring GIOVANI Creatinine 1.7 on admission GIOVANI secondary to vasomotor nephropathy Improved with IV hydration Monitor renal function Avoid nephrotoxic medications Elevated D-dimer VQ scan negative for PE Ultrasound Doppler lower extremities positive for DVT Started on Lovenox twice daily therapeutic dose DVT prophylaxis-Lovenox Full code Position-Home when stable Hospitalist Physical - Constitutional Vitals: Temp Pulse Resp BP Pulse Ox 97.8 F 100 H 20 134/80 100 10/17/20 03:30 10/18/20 12:15 10/18/20 12:15 10/18/20 12:15 10/18/20 12:15 General appearance: Present: no acute distress, mild distress, well-nourished HEART Score - HEART Score Troponin: Troponin T < 0.010 ng/mL (0.00-0.029) 10/17/20 00:25 Results - Labs CBC & Chem 7: 10/18/20 05:21 10/18/20 10:30 Labs: Laboratory Last Values WBC 8.0 K/mm3 (4.5-11.0) 10/18/20 05:21 RBC 4.62 M/mm3 (3.65-5.03) 10/18/20 05:21 Hgb 13.1 gm/dl (10.1-14.3) 10/18/20 05:21 Hct 38.7 % (30.3-42.9) D 10/18/20 05:21 MCV 84 fl (79-97) 10/18/20 05:21 MCH 28 pg (28-32) 10/18/20 05:21 MCHC 34 % (30-34) 10/18/20 05:21 RDW 15.9 % (13.2-15.2) H 10/18/20 05:21 Plt Count 163 K/mm3 (140-440) 10/18/20 05:21 Lymph % (Auto) 15.7 % (13.4-35.0) 10/18/20 05:21 Coffey % (Auto) 8.0 % (0.0-7.3) H 10/18/20 05:21 Eos % (Auto) 0.1 % (0.0-4.3) 10/18/20 05:21 Baso % (Auto) 1.2 % (0.0-1.8) 10/18/20 05:21 Lymph # (Auto) 1.3 K/mm3 (1.2-5.4) 10/18/20 05:21 Coffey # (Auto) 0.6 K/mm3 (0.0-0.8) 10/18/20 05:21 Eos # (Auto) 0.0 K/mm3 (0.0-0.4) 10/18/20 05:21 Baso # (Auto) 0.1 K/mm3 (0.0-0.1) 10/18/20 05:21 Seg Neutrophils % 75.0 % (40.0-70.0) H 10/18/20 05:21 Seg Neutrophils # 6.0 K/mm3 (1.8-7.7) 10/18/20 05:21 PT 15.4 Sec. (12.2-14.9) H 10/17/20 01:34 INR 1.24 (0.87-1.13) H 10/17/20 01:34 D-Dimer 1017.46 ng/mlDDU (0-234) H 10/17/20 01:34 VBG pH 7.050 (7.320-7.420) L* 10/17/20 01:34 Sodium TNR 10/18/20 10:30 Potassium TNR 10/18/20 10:30 Chloride TNR 10/18/20 10:30 Carbon Dioxide 15 mmol/L (22-30) L 10/18/20 10:30 Anion Gap TNR 10/18/20 10:30 BUN 33 mg/dL (7-17) H 10/18/20 10:30 Creatinine 1.3 mg/dL (0.6-1.2) H 10/18/20 10:30 Estimated GFR 53 ml/min 10/18/20 10:30 BUN/Creatinine Ratio 25 % 10/18/20 10:30 Glucose 203 mg/dL (65-100) H 10/18/20 10:30 POC Glucose 135 mg/dL (70-105) H 10/18/20 12:42 Lactic Acid 2.10 mmol/L (0.7-2.0) H* 10/17/20 08:39 Calcium 9.3 mg/dL (8.4-10.2) 10/18/20 10:30 Phosphorus 1.80 mg/dL (2.5-4.5) L 10/17/20 06:42 Magnesium 2.30 mg/dL (1.7-2.3) 10/17/20 06:42 Ferritin 195.7 ng/mL (10.0-200.0) 10/17/20 01:34 Total Bilirubin 0.50 mg/dL (0.1-1.2) 10/17/20 00:25 AST 19 units/L (5-40) 10/17/20 00:25 ALT 9 units/L (7-56) 10/17/20 00:25 Alkaline Phosphatase 203 units/L (35-129) H 10/17/20 00:25 Lactate Dehydrogenase 258 units/L (91-180) H 10/17/20 01:34 Total Creatine Kinase 168 units/L (30-135) H 10/17/20 01:34 Troponin T < 0.010 ng/mL (0.00-0.029) 10/17/20 00:25 C-Reactive Protein 1.20 mg/dL (0.00-1.30) 10/17/20 01:34 NT-Pro-B Natriuret Pep 127.2 pg/mL (0-450) 10/17/20 00:25 Total Protein 8.9 g/dL (6.3-8.2) H 10/17/20 00:25 Albumin 4.6 g/dL (3.9-5) 10/17/20 00:25 Albumin/Globulin Ratio 1.1 % 10/17/20 00:25 Lipase 166 units/L (13-60) H 10/17/20 00:25 Procalcitonin 0.10 ng/mL (<0.15) 10/17/20 01:34 HCG, Quant < 2 mIU/mL (0-4) 10/17/20 01:34 Coronavirus (PCR) Negative (Negative) 10/17/20 Unknown Microbiology: Microbiology 10/17/20 01:36 Peripheral/Venous Blood Culture - Preliminary NO GROWTH AFTER 24 HOURS 10/17/20 01:34 Peripheral/Venous Blood Culture - Preliminary NO GROWTH AFTER 24 HOURS Rosen/IV: IV Catheter Type [Left INT / Saline Lock Antecubital] Active Medications - Current Medications Current Medications: Generic Name Dose Route Start Last Admin Trade Name Freq PRN Reason Stop Dose Admin Amlodipine Besylate 5 mg 10/17/20 10:00 10/18/20 09:41 Amlodipine 5 Mg Tab PO 5 mg DAILY TREVOR Administration Dextrose 0 ml 10/17/20 02:29 Dextrose 50% In Water (25gm) 50 Ml Syringe IV Q30MIN PRN Hypoglycemia Protocol Enoxaparin Sodium 100 mg 10/18/20 10:00 10/18/20 09:43 Enoxaparin 100 Mg/1 Ml Inj 1 mg/kg (100 mg) 100 mg SUB-Q Administration Q12HR TREVOR Protocol Famotidine 20 mg 10/17/20 10:00 10/18/20 09:41 Famotidine 20 Mg Tab PO 20 mg BID TREVOR Administration Potassium Chloride/Dextrose/Sod Cl 20 meq in 1,000 mls @ 125 mls/hr 10/17/20 03:00 10/17/20 12:06 D5w/0.45% Nacl/Kcl 20 Meq IV 125 mls/hr DIRECT TREVOR Administration Insulin Human Regular 100 100 mls @ 1 mls/hr 10/17/20 03:00 10/18/20 12:44 units/ Sodium Chloride IV 10/18/20 14:00 3 units/hr TITR TREVOR 3 mls/hr Titration Protocol 1 UNITS/HR Potassium Chloride 10 meq in 100 mls @ 100 mls/hr 10/18/20 13:00 Kcl 10meq/100ml IV 10/18/20 16:59 Q1H TREVOR Insulin Glargine 10 units 10/18/20 22:00 Insulin Glargine 100 Units/Ml SUB-Q QHS TREVOR Insulin Human Lispro 0 unit 10/18/20 11:30 10/18/20 11:25 Insulin Lispro 100 Unit/Ml SUB-Q Not Given ACHS TREVOR Protocol Potassium Chloride 40 meq 10/18/20 06:47 Potassium Chloride Er 20 Meq Tab PO Q8HR PRN Hypokalemia Sodium Chloride 10 ml 10/17/20 03:00 Sodium Chloride 0.9% 10 Ml Flush Syringe IV PRN PRN LINE FLUSH Nutrition/Malnutrition Assess - Dietary Evaluation Nutrition/Malnutrition Findings: Nutrition Notes Start: 10/18/20 08:43 Freq: Status: Active Protocol: Document 10/18/20 08:43 (Rec: 10/18/20 08:44 [id number]) Nutrition Notes Need for Assessment generated from: MD Order Initial or Follow up Brief Note Current Diagnosis Diabetes,Hypertension Other Pertinent Diagnosis DKA Current Diet No diet Labs/Tests BG on admission: 547 Subjective/Other Information MD consult for diet education. Pt on hold in the ED. Nutrition Intervention Follow-Up By: 10/19/20 Additional Comments FU for diet education
[2020-10-18 13:42] LABS: Alanine Aminotransferase 7 units/L (7-56); Albumin 3.7 g/dL (3.9-5); BUN/Creatinine Ratio 29; Blood Urea Nitrogen 32 mg/dL (7-17); Calcium 8.7 mg/dL (8.4-10.2); Hemolysis Index 13
[2020-10-18] MEDS ORDERED: INSULIN GLARGINE 100 UNITS/ML SUB-Q SCH (22:00)
[2020-10-19] MEDS: D5W/0.45% NACL/KCL 20 MEQ 20 MEQ/1,000 ML BAG IV SCH (01:08)
[2020-10-19 10:23] VITALS: BP 128/62
[2020-10-19] MEDS: FAMOTIDINE 20 MG TAB PO SCH (11:21)
[2020-10-19] MEDS: ENOXAPARIN 100 MG/1 ML INJ SUB-Q SCH (11:21)
[2020-10-19] MEDS: amLODIPine 5 MG TAB PO SCH (11:22)
[2020-10-19] MEDS ORDERED: POTASSIUM CHLORIDE ER 20 MEQ TAB PO NR (12:23)
[2020-10-19] MEDS: INSULIN LISPRO 100 UNIT/ML SUB-Q SCH ×2 (13:09→17:52)
--- NOTE | 2020-10-19 15:30 | Discharge Summary ---
Providers - Providers Date of Admission: 10/17/20 02:33 Date of discharge: 10/19/20 Attending physician: CUONG MARRERO 10/17/20 01:26 Consult to Physician [CONS] Urgent Comment: Consulting Provider: OH SANCHEZ Physician Instructions: Reason For Exam: dyspnea, hypoxia, PUI 10/17/20 02:45 Consult to Dietitian/Nutrition [CONS] Routine Physician Instructions: Reason For Exam: DKA Reason for Consult: Nutrition Recommendations Reason for Consult: Diet education Primary care physician: TILE FINISHER Hospitalization Condition: Critical Disposition: DC-01 TO HOME OR SELFCARE Time spent for discharge: 34 minutes Core Measure Documentation - Palliative Care Palliative Care/ Comfort Measures: Not Applicable - Core Measures Any of the following diagnoses?: history only Exam - Constitutional Vitals: Temp Pulse Resp BP Pulse Ox 98.3 F 86 18 128/62 100 10/19/20 09:03 10/19/20 09:03 10/19/20 09:03 10/19/20 09:03 10/19/20 09:03 Plan Activity: advance as tolerated Weight Bearing Status: Weight Bear as Tolerated Diet: diabetic Special Instructions: record blood sugar diary (before meal and bedtime) Follow up with: PRIMARY CAREMD [Primary Care Provider] - 3-5 Days MAKENZIE MATA MD [Staff Physician] - 7 Days Prescriptions: amLODIPine 5 mg PO DAILY #30 tablet Insulin Regular, Human [Humulin R] See Protocol SUB-Q DAILY #2 vial Insulin NPH, Human [NovoLIN N] 40 unit SUB-Q BIDDIAB #2 vial
[2020-10-19] MEDS ORDERED: INSULIN REGULAR, HUMAN 100 UNITS/1 ML SUB-Q ONE (16:28)
[2020-10-19] MEDS ORDERED: INSULIN GLARGINE 100 UNITS/ML SUB-Q SCH (22:00)
== END 2020-10-19 18:45 | disposition home or self-care (01) | DRG 637 ==
LOC: ED 23:55 → CC1 10-17 02:33 → OBSVTOIN 10-17 02:33 → 4A 10-18 15:18
PROVIDERS: ADMIT Hospitalist; ATTEND Internal Medicine
DX: E11.10 Type 2 diabetes mellitus with ketoacidosis without coma (principal); N17.0 Acute kidney failure with tubular necrosis; E87.2 Acidosis; N28.9 Disorder of kidney and ureter, unspecified; R74.8 Abnormal levels of other serum enzymes; F41.9 Anxiety disorder, unspecified; Z20.822 Contact with and (suspected) exposure to COVID-19; E87.5 Hyperkalemia; I10 Essential (primary) hypertension; Z79.4 Long term (current) use of insulin; Z88.8 Allergy status to other drugs, medicaments and biological substances; Z79.899 Other long term (current) drug therapy; Z79.01 Long term (current) use of anticoagulants; Z79.891 Long term (current) use of opiate analgesic; Z91.19 Patient's noncompliance with other medical treatment and regimen
CPT/HCPCS: 36415; 71045; 78580; 80048; 80053; 82140; 82550; 82728; 82805; 82947; 82962; 83615; 83690; 83735; 83880; 84100; 84132; 84145; 84484; 84702; 85025; 85379; 85610; 86140; 87040; 93005; 93970; 96374; 96375; 96376; G0378; A9540; J0456; J0610; J0696; J1100; J1644; J1650; J1815; J2405; J3480; J7030; U0003